=== PATIENT | female | born 1955 | race Caucasian/White ===

== ENCOUNTER → 2017-08-09 15:36 | Outpatient (CLI) | payer BC, SELFPAY ==
--- NOTE | 2017-08-09 15:39 | MM_ITS ---
MM Dig screening mamm BI w/CAD CAD Screening COMPARISON: Digital mammograms 08/07/2016 and 07/30/2015 INDICATION: There is no personal or family history of breast cancer TECHNIQUE: Standard CC and MLO images were obtained. R2 CAD reviewed. FINDINGS: The breasts are composed primarily of fat with mild diffuse scattered fibroglandular densities throughout each breast. There is a stable tiny density left breast with eccentric calcification. There is no suspicious lesion and there are no suspicious microcalcifications. IMPRESSION: Fatty type breast parenchyma with no suspicious lesion seen BI-RADS Category: 2 Benign Finding(s) RECOMMENDED FOLLOW-UP: 1YR - 1 YEAR FOLLOW-UP (A letter has been sent to the patient regarding results of the study.)
== END ==
PROVIDERS: Family Provider Family Medicine; PCP Family Medicine; Visit Provider Obstetrics & Gynecology
DX: Z12.31 Encounter for screening mammogram for malignant neoplasm of breast (principal)
CPT/HCPCS: 77067

== ENCOUNTER → 2017-08-15 14:09 | Outpatient (CLI) | payer BC, SELFPAY ==
--- NOTE | 2017-08-15 14:15 | MR_ITS ---
MR ankle RT wo con CLINICAL INDICATION: ITS.REASON: ACUTE RIGHT ANKLE PAIN ORDERING PHYSICIAN: Lyndon Patrick MD PATIENT AGE: 61 years TECHNIQUE: Multiplanar multiecho sequences are performed without contrast. COMPARISON: None FINDINGS: No fracture or dislocation. No bony destructive process. No ligamentous or tendinous injuries evident. No effusions or significant degenerative change. IMPRESSION: Negative MRI of the right ankle
== END ==
PROVIDERS: Family Provider Family Medicine; PCP Family Medicine; Visit Provider Family Medicine
DX: M25.571 Pain in right ankle and joints of right foot (principal)
CPT/HCPCS: 73721

== ENCOUNTER → 2017-08-16 15:47 | Outpatient (CLI) | payer BC, SELFPAY ==
--- NOTE | 2017-08-16 15:49 | MR_ITS ---
MR foot RT wo con CLINICAL INDICATION: ITS.REASON: ACUTE RIGHT ANKLE PAIN ORDERING PHYSICIAN: Lyndon Patrick MD PATIENT AGE: 61 years TECHNIQUE: Routine multiplanar multiecho sequences are performed without contrast. COMPARISON: None FINDINGS: Fracture or dislocation. No bony destructive process. No significant joint effusion. No obvious ligamentous or tendinous abnormality. There are mild osteoarthritic changes of the first metatarsophalangeal joint. No soft tissue masses. 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
== END ==
PROVIDERS: Family Provider Family Medicine; PCP Family Medicine; Visit Provider Family Medicine
DX: M25.571 Pain in right ankle and joints of right foot (principal)
CPT/HCPCS: 73718

== ENCOUNTER → 2018-09-09 10:03 | Outpatient (CLI) | payer BC, SELFPAY ==
--- NOTE | 2018-09-09 10:05 | MM_ITS ---
MM Dig screening mamm BI w/CAD CAD Screening COMPARISON: Digital mammograms with CAD 08/07/2016 and 08/09/2017 INDICATION: There is no personal or family history of breast cancer TECHNIQUE: Standard CC and MLO images were obtained. R2 CAD reviewed. FINDINGS: The breasts are composed primarily of fat with minimal scattered fibroglandular densities throughout each breast. There is a stable benign-appearing density with benign-appearing calcifications upper inner quadrant right breast. There is no suspicious lesion and there are no suspicious microcalcifications. IMPRESSION: Fibrofatty parenchyma no suspicious lesion seen BI-RADS Category: 2 Benign Finding(s) RECOMMENDED FOLLOW-UP: 1YR - 1 YEAR FOLLOW-UP (A letter has been sent to the patient regarding results of the study.)
== END ==
PROVIDERS: PCP Family Medicine; Visit Provider Obstetrics & Gynecology
DX: Z12.31 Encounter for screening mammogram for malignant neoplasm of breast (principal)
CPT/HCPCS: 77067

== ENCOUNTER → 2018-09-12 10:06 | Outpatient (CLI) | payer BC, SELFPAY ==
--- NOTE | 2018-09-12 10:10 | XR_ITS ---
DEXA SCAN.-BONE DENSITY STUDY . LUMBAR SPINE, right hip, and wrist HISTORY: Postmenopausal female. Treatments:. Estrogen replacement therapy. Synthroid. Low calcium intake. Previous fracture. Hypothyroidism. TECHNIQUE: DEXA scan hip and lumbar spine The most complete data summary and color graphic presentation of the today's ( and any prior ) DEXA findings are available in PACS. Definition and treatment guidelines included. COMPARISON: August 2015, June 2011 LUMBAR SPINE: Above normal bone density L1 vertebral body demonstrates the lowest T score 3.0 with BMD1.492 g/cm sq Overall mean lumbar L1-L4 T score 4.4 with BMD1.708 g/cm sq . August 2015 prior DEXA -the mean T score 2 with BMD was1.687g/cm sq Thus when comparing today's study to the prior exam there's been a 1.4% increase increasing mean bone density at the lumbar spine. RIGHT HIP above normal bone density Femoral neck density is best predictor of hip fracture risk . Right femoral T score = 1.7 with BMD1.268 g/cm sq . Average all regions at right hip yields today's right Hip Mean T score = 3.3 with BMD1.427 g/cm sq . On 2015 right hip T score = 2.9 with mean BMD1.37 g/cm sq Thus this reflects a 4.2% increasein overall mean bone density at right hip been interval. ====== RIGHT WRIST Above normal bone density distal one third of the radius BMD 1.042 with T score 1.7 radius total BMD 0.9 with T score 3.6. IMPRESSION Above normal bone density is seen at all areas sampled lumbar spine, right hip, right wrist. It . WHO criteria for post-menopausal, Women: Normal: T-score at or above -1 SD Osteopenia: T-score between -1 and -2.5 SD Osteoporosis: T-score at or below -2.5 SD
== END ==
PROVIDERS: PCP Family Medicine; Visit Provider Emergency Medicine
DX: Z13.820 Encounter for screening for osteoporosis (principal)
CPT/HCPCS: 77080

== ENCOUNTER → 2019-10-09 09:06 | Outpatient (CLI) | payer BC, SELFPAY ==
--- NOTE | 2019-10-09 09:06 | MM_ITS ---
PROCEDURE: MM DIG SCREENING MAMM BI W/CAD Digital Breast Tomosynthesis Included CLINICAL INDICATION: Routine Screening Mammogram There is no personal or family history of breast cancer. The patient is currently on estrogen. COMPARISON: [facility] DIG MAMM-SCREEN DYLAN W/CAD from 08/07/2016 [facility] MM Dig screening mamm BI w/CAD from 08/09/2017 [facility] MM Dig screening mamm BI w/CAD from 09/09/2018 TECHNIQUE: Standard CC and MLO images and 3D Tomosynthesis was obtained. R2 CAD reviewed. FINDINGS: The breasts are composed primarily of fat with scattered fibroglandular densities seen throughout both breasts. There is a benign-appearing microcalcification left breast. There is a possible developing asymmetric density with irregular borders outer quadrant left breast at approximately the 3 o'clock position which is confirmed with carol images. Recommend the patient return for spot compression views and ultrasound for additional evaluation. IMPRESSION: Fatty type breast parenchyma with possible developing new asymmetric lesion left breast BI-RAD Category: 0 Need Additional Imaging Evaluation FOLLOW-UP: IMM Immediate Follow-up Recommended (A letter has been sent to the patient regarding results of the study.) Dictated by: Dr. Saul Cooper MD 10/09/2019 13:[address] Saul Cooper MD in [place] 10/09/2019 13:32
== END ==
PROVIDERS: PCP Family Medicine; Visit Provider Obstetrics & Gynecology
DX: Z12.31 Encounter for screening mammogram for malignant neoplasm of breast (principal)
CPT/HCPCS: 77063; 77067

== ENCOUNTER → 2019-10-24 12:34 | Outpatient (CLI) | payer BC, SELFPAY ==
--- NOTE | 2019-10-24 12:34 | MM_ITS ---
This report is currently processing and HAS NOT BEEN OFFICIALLY SIGNED BY THE PHYSICIAN - ESTIMATED TIME OF APPROVAL IS 10/30/2019 10:56. PROCEDURE: MM DIG MAMM DX UNILAT LT CAD Digital Breast Tomosynthesis Included CLINICAL INDICATION: abnormal mammogram COMPARISON: MM DIG SCREENING MAMM BI W/CAD from 10/09/2019 TECHNIQUE: Standard CC and MLO images and 3D Tomosynthesis was obtained. R2 CAD reviewed. FINDINGS: The additional spot compression views and 90 degree lateral view somewhat lessen concern for a possible asymmetric lesion. Ultrasound examination performed the same date showed no abnormality. This most likely represents simply a small area of asymmetric glandular tissue. IMPRESSION: Essentially negative problem solving views and recommend the patient continue with yearly screening mammography BI-RAD Category: 1 Negative FOLLOW-UP: 1YR 1 Year Follow-up (A letter has been sent to the patient regarding results of the study.) Dictated by: Dr. Saul Cooper MD 10/24/2019 15:[address] Saul Cooper MD in [place] 10/30/2019 10:53
--- NOTE | 2019-10-24 12:34 | US_ITS ---
PROCEDURE: US BREAST LT COMPLETE CLINICAL INDICATION: spot compression of possible asymmetric lesion COMPARISON: Screening mammogram 10/09/2019 FINDINGS: Rather homogeneous diffuse echogenicity is seen consistent with this lady's primarily fatty type breast parenchyma. There is no suspicious cystic or solid lesion identified. There is a normal appearing node in the axilla. IMPRESSION: Negative targeted ultrasound left breast Dictated by: Dr. Saul Cooper MD 10/24/2019 15:[address] Saul Copoer MD in [place] 10/24/2019 15:02
== END ==
PROVIDERS: PCP Family Medicine; Visit Provider Obstetrics & Gynecology
DX: R92.8 Other abnormal and inconclusive findings on diagnostic imaging of breast (principal)
CPT/HCPCS: 76641; 77061; 77065; G0279

== ENCOUNTER → 2020-01-14 12:42 | Outpatient (CLI) | payer MEDICARE, BC, SELFPAY ==
[2020-01-14 13:29] LABS: Free T4 (Free Thyroxine) 1.93 ng/dl (0.78-2.19)
[2020-01-14 13:43] LABS: Thyroid Stimulating Hormone 0.17 uIU/mL (0.465-4.68)
[2020-01-15 08:57] LABS: Vitamin B12 1720 pg/mL (232-1245)
== END ==
PROVIDERS: Visit Provider Physician Assistant
DX: E03.9 Hypothyroidism, unspecified (principal); E53.8 Deficiency of other specified B group vitamins
CPT/HCPCS: 36415; 82607; 84439; 84443

== ENCOUNTER → 2020-03-03 10:51 | Outpatient (CLI) | payer MEDICARE, BC, SELFPAY ==
[2020-03-03 14:18] LABS: Free T4 (Free Thyroxine) 1.57 ng/dl (0.78-2.19)
[2020-03-03 14:32] LABS: Thyroid Stimulating Hormone 1.14 uIU/mL (0.465-4.68)
[2020-03-03 14:52] LABS: Vitamin B12 > 1000 pg/mL (239-931)
== END ==
PROVIDERS: Visit Provider Nurse Practitioner Family
DX: E03.9 Hypothyroidism, unspecified (principal); E53.8 Deficiency of other specified B group vitamins
CPT/HCPCS: 36415; 82607; 84439; 84443

== ENCOUNTER → 2020-10-26 08:43 | Outpatient (CLI) | payer MEDICARE, BC, SELFPAY ==
--- NOTE | 2020-10-26 08:43 | MM_ITS ---
PROCEDURE INFORMATION: Exam: MG Screening 3D Mammography Exam date and time: 10/26/2020 8:43 AM Age: 64 years old Clinical indication: screening mammogram TECHNIQUE: Imaging protocol: Screening tomosynthesis and 2D mammography including computer-aided detection (CAD) when performed. COMPARISON: 1. MG MM DIG MAMM DX UNILAT LT CAD 10/24/2019 1:10 PM 2. MG MM DIG SCREENING MAMM BI W/CAD 10/09/2019 9:22 AM 3. MG [facility] MM Dig screening mamm BI w/CAD 09/09/2018 11:14 AM 4. MG [facility] MM Dig screening mamm BI w/CAD 08/09/2017 3:52 PM FINDINGS: MAMMOGRAPHY: Breast composition: There are scattered areas of fibroglandular density. Mass: Mass within the outer posterior left breast approximating 3 o'clock about 16 cm from the nipple should be further assessed with spot views in CC/MLO projection to confirm and further characterize. Ultrasound should also be performed. Architectural distortion: No new or suspicious architectural distortion. Calcifications: No new or suspicious calcifications are present Asymmetric density: No new or suspicious asymmetric density is present Skin thickening: None. Axillary adenopathy: None. IMPRESSION: Mass within the outer posterior left breast approximating 3 o'clock 16 cm from the nipple measuring 10 mm should be further assessed with spot views in CC/MLO projection to confirm and further characterize. Ultrasound should also be performed. ASSESSMENT: BI-RADS category 0: Incomplete-need additional imaging evaluation
== END ==
PROVIDERS: PCP Psychiatry & Neurology Sleep Medicine; Visit Provider Obstetrics & Gynecology
DX: Z12.31 Encounter for screening mammogram for malignant neoplasm of breast (principal)
CPT/HCPCS: 77063; 77067

== ENCOUNTER → 2020-11-05 13:45 | Outpatient (CLI) | payer MEDICARE, BC, SELFPAY ==
--- NOTE | 2020-11-05 13:45 | US_ITS ---
PROCEDURE: US BREAST LT COMPLETE CLINICAL INDICATION: abnormal mamm COMPARISON: US US BREAST LT COMPLETE from 10/24/2019 FINDINGS: Targeted ultrasound shows a small homogeneous echogenic lesion 2 o'clock position outer breast measuring 0.6 by 0.7 x 0.3 cm and this probably is a small Nascimento. However at the 2 o'clock position outer breast there is a suspicious hypoechoic lesion taller than wide with ill-defined borders and this must be considered suspicious for carcinoma. IMPRESSION: Suspicious lesion on both ultrasound and problem solving mammogram views and biopsy is recommended BI-RADS category 4 Dictated by: Dr. Saul Cooper MD 11/05/2020 15:22 Dr. Saul Cooper MD in [place] 11/05/2020 15:22
--- NOTE | 2020-11-05 14:21 | MM_ITS ---
PROCEDURE: MM DIG MAMM DX UNILAT LT CAD Digital Breast Tomosynthesis Included CLINICAL INDICATION: ABN MAMM COMPARISON: MG MM DIG SCREENING MAMM BI W/CAD from 10/26/2020 US US BREAST LT COMPLETE from 11/05/2020 TECHNIQUE: Standard CC and MLO images and 3D Tomosynthesis was obtained. R2 CAD reviewed. FINDINGS: Spot-compression MLO and CC views were obtained along with a 90 degree lateral view. The asymmetric density central portion persists on the spot views and shows somewhat ill-defined borders and subtle suggestion of spiculation. Targeted ultrasound performed the same date shows a hypoechoic lesion taller than wide with ill-defined borders and recommend the patient be scheduled for biopsy which could be performed with ultrasound guidance. IMPRESSION: Suspicious asymmetric lesion on problem solving views with positive ultrasound findings as described above BI-RAD Category: 4 Suspicious Abnormality - Biopsy Considered FOLLOW-UP: BIO Biopsy Recommended (A letter has been sent to the patient regarding results of the study.) Dictated by: Dr. Saul Cooper MD 11/05/2020 15:20 Dr. Saul Cooper MD in [place] 11/05/2020 15:20
== END ==
PROVIDERS: PCP Family Medicine; Visit Provider Obstetrics & Gynecology
DX: R92.8 Other abnormal and inconclusive findings on diagnostic imaging of breast (principal)
CPT/HCPCS: 76641; 77061; 77065; G0279

== ENCOUNTER → 2020-11-18 09:30 | Outpatient (CLI) | payer MEDICARE, BC, SELFPAY ==
--- NOTE | 2020-11-18 09:38 | US_ITS ---
PROCEDURE: US MAMMOTOME BX LT CLINICAL INDICATION: ABN MAMM OF LT BREAST Left breast nodule COMPARISON: MG MM DIG SCREENING MAMM BI W/CAD from 10/26/2020 US US BREAST LT COMPLETE from 11/05/2020 MG MM CLIP PLACEMENT LT from 11/18/2020 FINDINGS: Following obtaining informed consent and time-out procedure under aseptic conditions and local anesthesia with 1 percent buffered lidocaine, mammotome needle was inserted into the area of interest within the suspicious nodule at 3 o'clock with ultrasound guidance. Multiple mammotome biopsies were obtained and a non ferromagnetic clip was then placed. Patient tolerated the procedure well without evidence of immediate complications. Post biopsy mammogram demonstrates the clip and post biopsy changes present within the 3 o'clock region of the left breast in the area of mammographic interest. Pathology: Invasive moderately differentiated ductal adenocarcinoma. IMPRESSION: Successful and uneventful ultrasound-guided mammotome biopsy of the left breast demonstrated invasive moderately differentiated ductal adenocarcinoma. Surgical and oncology consult suggested. Dictated by: Toby Fischer MD 11/30/2020 09:34 Toby Fischer MD in [place] 11/30/2020 09:34
--- NOTE | 2020-11-18 11:15 | MM_ITS ---
PROCEDURE: MM CLIP PLACEMENT LT Digital Breast Tomosynthesis Included CLINICAL INDICATION: S/P BX follow-up biopsy COMPARISON: MG MM DIG MAMM DX UNILAT LT CAD from 10/24/2019 MG MM DIG SCREENING MAMM BI W/CAD from 10/26/2020 MG MM DIG MAMM DX UNILAT LT CAD from 11/05/2020 US US MAMMOTOME BX LT from 11/18/2020 TECHNIQUE: Standard CC and MLO images and 3D Tomosynthesis was obtained. R2 CAD reviewed. FINDINGS: Post biopsy and clip placement images are obtained demonstrating the and moderately placed clip in the outer aspect of the left breast corresponding to the previously noted area of asymmetry on the mammogram. Post biopsy changes are present in this region as well. Pathology is pending. IMPRESSION: Status post mammotome biopsy of the left breast but post biopsy findings and biopsy clip in satisfactory position in the area of mammographic and sonographic concern. Pathology pending Dictated by: Toby Fischer MD 11/19/2020 14:22 Toby Fischer MD in [place] 11/19/2020 14:22
== END ==
PROVIDERS: PCP Physician Assistant; Visit Provider Obstetrics & Gynecology
DX: R92.8 Other abnormal and inconclusive findings on diagnostic imaging of breast (principal); N63.20 Unspecified lump in the left breast, unspecified quadrant
CPT/HCPCS: 19083; 77065; 88305; 88360; C2618

== ENCOUNTER → 2020-12-13 10:41 | Outpatient (CLI) | payer MEDICARE, BC, SELFPAY | DX: Z01.812 Encounter for preprocedural laboratory examination (principal); Z11.52 Encounter for screening for COVID-19; C50.411 Malignant neoplasm of upper-outer quadrant of right female breast; Z17.1 Estrogen receptor negative status [ER-] | CPT/HCPCS: U0003 ==

== ENCOUNTER → 2021-02-05 09:07 | Outpatient (CLI) | payer MEDICARE, BC, SELFPAY ==
[2021-02-05 11:15] LABS: Basophils % 0.5 % (0.1-2.0); Eosinophils # 0.3 K/mm3 (0.0-0.4); Eosinophils % 5.6 % (0.1-12.0); Hematocrit 44.8 % (37.0-47.0); Hemoglobin 14.8 g/dL (12.2-16.2); Lymphocytes % 33.3 % (10-50); Mean Corpuscular HGB Conc 32.9 g/dL (31.8-35.4); Mean Corpuscular Volume 97.1 fl (81-99); Mean Platelet Volume 8.5 fl (7.4-10.4); Monocytes # 0.1 K/mm3 (0.1-1.0); Monocytes % 1.1 % (1.7-9.3); Neutrophils # 3.5 K/mm3 (1.8-7.8); Neutrophils % 59.5 % (37.0-80.0); Platelet Count 300 K/mm3 (142-424); Red Blood Count 4.62 M/mm3 (4.20-5.40); Red Cell Distribution Width 13.6 % (11.5-17.5); White Blood Count 5.9 K/mm3 (4.8-10.8)
[2021-02-05 11:59] LABS: Chloride 104 mmol/L (98-107); Potassium 4.5 mmoL/L (3.5-5.1); Sodium 140 mmol/L (136-145)
[2021-02-05 12:02] LABS: Alanine Aminotransferase 47 U/L (12-78); Albumin Level 3.5 g/dl (3.5-5.0); Albumin/Globulin Ratio 1.4 (1.1-1.8); Alkaline Phosphatase 84 U/L (38-126); Anion Gap 12.5 mEq/L (5-15); Aspartate Amino Transferase 48 U/L (14-36); Bilirubin,Total 0.9 mg/dl (0.2-1.3); Blood Urea Nitrogen 15 mg/dl (7-17); Carbon Dioxide 28 mmol/L (22.0-30.0); Estimated Glomerular Filt Rate 84 ml/min (>60); GFR (African American) 101 ML/MIN (>60); Globulin 2.5 g/dL (1.3-3.2)
[2021-02-05 12:03] LABS: Calcium 8.8 mg/dl (8.4-10.2); Glucose 91 mg/dl (74-100)
== END ==
PROVIDERS: Visit Provider Internal Medicine
DX: C50.412 Malignant neoplasm of upper-outer quadrant of left female breast (principal); Z17.1 Estrogen receptor negative status [ER-]
CPT/HCPCS: 36415; 80053; 85025

== ENCOUNTER → 2021-02-14 09:00 | Outpatient (CLI) | payer MEDICARE, BC, SELFPAY ==
[2021-02-14 09:27] LABS: Alanine Aminotransferase 27 U/L (12-78); Albumin Level 3.5 g/dl (3.5-5.0); Albumin/Globulin Ratio 1.3 (1.1-1.8); Alkaline Phosphatase 60 U/L (38-126); Anion Gap 11.1 mEq/L (5-15); Aspartate Amino Transferase 29 U/L (14-36); Bilirubin,Total 0.6 mg/dl (0.2-1.3); Blood Urea Nitrogen 16 mg/dl (7-17); Calcium 8.7 mg/dl (8.4-10.2); Carbon Dioxide 28 mmol/L (22.0-30.0); Chloride 104 mmol/L (98-107); Estimated Glomerular Filt Rate 84 ml/min (>60); GFR (African American) 101 ML/MIN (>60); Globulin 2.7 g/dL (1.3-3.2); Glucose 111 mg/dl (74-100); Potassium 4.1 mmoL/L (3.5-5.1); Sodium 139 mmol/L (136-145); Total Protein,Serum 6.2 g/dl (6.3-8.2)
[2021-02-14 10:07] LABS: Basophils % 0.9 % (0.1-2.0); Eosinophils # 0.2 K/mm3 (0.0-0.4); Eosinophils % 3.6 % (0.1-12.0); Hematocrit 40.5 % (37.0-47.0); Hemoglobin 13.3 g/dL (12.2-16.2); Lymphocytes # 2.1 K/mm3 (0.7-4.5); Lymphocytes % 51.9 % (10-50); Mean Corpuscular HGB Conc 32.9 g/dL (31.8-35.4); Mean Corpuscular Hemoglobin 32.3 pg (27.0-31.2); Mean Corpuscular Volume 98.2 fl (81-99); Monocytes # 0.1 K/mm3 (0.1-1.0); Monocytes % 3.5 % (1.7-9.3); Neutrophils # 1.6 K/mm3 (1.8-7.8); Neutrophils % 40.2 % (37.0-80.0); Platelet Count 278 K/mm3 (142-424); Red Blood Count 4.12 M/mm3 (4.20-5.40); Red Cell Distribution Width 13.9 % (11.5-17.5); White Blood Count 4.1 K/mm3 (4.8-10.8)
[2021-02-14 10:20] LABS: MANUAL DIFFERENTIAL MANUAL DIFFERENTIAL (MANUAL DIFF)
[2021-02-14 11:01] LABS: Lymphocytes % 62 % (10-50); Monocytes % 3 % (2-9); Neutrophils % 35 % (42-76); Total Cells Counted 100
[2021-02-14 11:02] LABS: Anisocytosis 1+; Hypochromasia 2+; Microcytosis 1+; Platelet Estimate Normal
== END ==
PROVIDERS: Visit Provider Internal Medicine
DX: C50.412 Malignant neoplasm of upper-outer quadrant of left female breast (principal); Z17.1 Estrogen receptor negative status [ER-]
CPT/HCPCS: 36415; 80053; 85007; 85025

== ENCOUNTER → 2021-02-19 08:47 | Outpatient (CLI) | payer MEDICARE, BC, SELFPAY ==
[2021-02-19 09:36] LABS: Basophils % 0.1 % (0.1-2.0); Eosinophils % 0.2 % (0.1-12.0); Hematocrit 43.1 % (37.0-47.0); Lymphocytes # 1.4 K/mm3 (0.7-4.5); Lymphocytes % 27.6 % (10-50); Mean Corpuscular HGB Conc 32.4 g/dL (31.8-35.4); Mean Corpuscular Volume 98.6 fl (81-99); Mean Platelet Volume 7.6 fl (7.4-10.4); Monocytes # 0.2 K/mm3 (0.1-1.0); Monocytes % 3.2 % (1.7-9.3); Neutrophils # 3.4 K/mm3 (1.8-7.8); Platelet Count 295 K/mm3 (142-424); Red Blood Count 4.37 M/mm3 (4.20-5.40); Red Cell Distribution Width 13.5 % (11.5-17.5)
[2021-02-19 10:20] LABS: Chloride 107 mmol/L (98-107); Sodium 140 mmol/L (136-145)
[2021-02-19 10:21] LABS: Potassium 4.7 mmoL/L (3.5-5.1)
[2021-02-19 10:23] LABS: Alanine Aminotransferase 94 U/L (12-78); Alkaline Phosphatase 81 U/L (38-126); Anion Gap 11.7 mEq/L (5-15); Aspartate Amino Transferase 85 U/L (14-36); Bilirubin,Total 0.6 mg/dl (0.2-1.3); Blood Urea Nitrogen 17 mg/dl (7-17); Carbon Dioxide 26 mmol/L (22.0-30.0); Estimated Glomerular Filt Rate 100 ml/min (>60); GFR (African American) 121 ML/MIN (>60)
[2021-02-19 10:24] LABS: Albumin Level 3.5 g/dl (3.5-5.0); Albumin/Globulin Ratio 1.4 (1.1-1.8); Calcium 9.2 mg/dl (8.4-10.2); Globulin 2.5 g/dL (1.3-3.2); Glucose 105 mg/dl (74-100)
== END ==
PROVIDERS: Visit Provider Internal Medicine
DX: C50.412 Malignant neoplasm of upper-outer quadrant of left female breast (principal); Z17.1 Estrogen receptor negative status [ER-]
CPT/HCPCS: 36415; 80053; 85025

== ENCOUNTER → 2021-02-26 08:01 | Outpatient (CLI) | payer MEDICARE, BC, SELFPAY ==
[2021-02-26 08:14] LABS: Basophils % 0.5 % (0.1-2.0); Eosinophils % 0.8 % (0.1-12.0); Hematocrit 42.2 % (37.0-47.0); Hemoglobin 13.6 g/dL (12.2-16.2); Lymphocytes # 1.4 K/mm3 (0.7-4.5); Lymphocytes % 37.8 % (10-50); Mean Corpuscular HGB Conc 32.3 g/dL (31.8-35.4); Mean Corpuscular Hemoglobin 32.3 pg (27.0-31.2); Mean Corpuscular Volume 100.2 fl (81-99); Mean Platelet Volume 7.4 fl (7.4-10.4); Monocytes # 0.1 K/mm3 (0.1-1.0); Monocytes % 1.3 % (1.7-9.3); Neutrophils # 2.2 K/mm3 (1.8-7.8); Neutrophils % 59.6 % (37.0-80.0); Platelet Count 270 K/mm3 (142-424); Red Blood Count 4.21 M/mm3 (4.20-5.40); Red Cell Distribution Width 13.9 % (11.5-17.5); White Blood Count 3.6 K/mm3 (4.8-10.8)
[2021-02-26 09:55] LABS: Chloride 106 mmol/L (98-107); Potassium 4.4 mmoL/L (3.5-5.1); Sodium 139 mmol/L (136-145)
[2021-02-26 09:58] LABS: Alanine Aminotransferase 106 U/L (12-78); Albumin Level 3.2 g/dl (3.5-5.0); Albumin/Globulin Ratio 1.5 (1.1-1.8); Alkaline Phosphatase 110 U/L (38-126); Anion Gap 9.4 mEq/L (5-15); Aspartate Amino Transferase 30 U/L (14-36); Bilirubin,Total 0.5 mg/dl (0.2-1.3); Blood Urea Nitrogen 16 mg/dl (7-17); Carbon Dioxide 28 mmol/L (22.0-30.0); Estimated Glomerular Filt Rate 100 ml/min (>60); GFR (African American) 121 ML/MIN (>60); Globulin 2.2 g/dL (1.3-3.2); Total Protein,Serum 5.4 g/dl (6.3-8.2)
[2021-02-26 09:59] LABS: Calcium 8.6 mg/dl (8.4-10.2); Glucose 112 mg/dl (74-100)
== END ==
PROVIDERS: Visit Provider Internal Medicine
DX: C50.412 Malignant neoplasm of upper-outer quadrant of left female breast (principal); Z17.1 Estrogen receptor negative status [ER-]
CPT/HCPCS: 36415; 80053; 85025

== ENCOUNTER → 2021-03-05 08:42 | Outpatient (CLI) | payer MEDICARE, BC, SELFPAY ==
[2021-03-05 09:03] LABS: Basophils % 0.6 % (0.1-2.0); Eosinophils % 0.3 % (0.1-12.0); Hematocrit 43.4 % (37.0-47.0); Hemoglobin 14.2 g/dL (12.2-16.2); Lymphocytes # 1.5 K/mm3 (0.7-4.5); Lymphocytes % 50.3 % (10-50); Mean Corpuscular HGB Conc 32.7 g/dL (31.8-35.4); Mean Corpuscular Hemoglobin 32.2 pg (27.0-31.2); Mean Corpuscular Volume 98.5 fl (81-99); Monocytes # 0.1 K/mm3 (0.1-1.0); Monocytes % 3.8 % (1.7-9.3); Neutrophils # 1.4 K/mm3 (1.8-7.8); Neutrophils % 44.9 % (37.0-80.0); Platelet Count 358 K/mm3 (142-424); Red Cell Distribution Width 14.7 % (11.5-17.5)
[2021-03-05 09:06] LABS: MANUAL DIFFERENTIAL MANUAL DIFFERENTIAL (MANUAL DIFF)
[2021-03-05 09:22] LABS: Chloride 105 mmol/L (98-107); Potassium 4.5 mmoL/L (3.5-5.1); Sodium 137 mmol/L (136-145)
[2021-03-05 09:24] LABS: Blood Urea Nitrogen 16 mg/dl (7-17); Estimated Glomerular Filt Rate 100 ml/min (>60); GFR (African American) 121 ML/MIN (>60)
[2021-03-05 09:25] LABS: Alanine Aminotransferase 29 U/L (12-78); Albumin Level 3.4 g/dl (3.5-5.0); Albumin/Globulin Ratio 1.5 (1.1-1.8); Alkaline Phosphatase 77 U/L (38-126); Anion Gap 8.5 mEq/L (5-15); Aspartate Amino Transferase 20 U/L (14-36); Bilirubin,Total 0.4 mg/dl (0.2-1.3); Carbon Dioxide 28 mmol/L (22.0-30.0); Globulin 2.3 g/dL (1.3-3.2); Total Protein,Serum 5.7 g/dl (6.3-8.2)
[2021-03-05 09:26] LABS: Calcium 8.8 mg/dl (8.4-10.2); Glucose 99 mg/dl (74-100)
[2021-03-05 09:56] LABS: Lymphocytes % 43 % (10-50); Monocytes % 3 % (2-9); Neutrophils % 54 % (42-76); Nucleated Red Blood Cells 2; Total Cells Counted 100
[2021-03-05 09:57] LABS: Platelet Estimate Normal; RBC Morphology Normal
== END ==
PROVIDERS: Visit Provider Internal Medicine
DX: C50.412 Malignant neoplasm of upper-outer quadrant of left female breast (principal); Z17.1 Estrogen receptor negative status [ER-]
CPT/HCPCS: 36415; 80053; 85007; 85025

== ENCOUNTER → 2021-03-12 08:34 | Outpatient (CLI) | payer MEDICARE, BC, SELFPAY ==
[2021-03-12 09:08] LABS: Basophils % 0.7 % (0.1-2.0); Eosinophils % 0.3 % (0.1-12.0); Hematocrit 42.7 % (37.0-47.0); Hemoglobin 14.1 g/dL (12.2-16.2); Lymphocytes # 2.3 K/mm3 (0.7-4.5); Lymphocytes % 37.7 % (10-50); Mean Corpuscular Hemoglobin 32.1 pg (27.0-31.2); Mean Corpuscular Volume 97.4 fl (81-99); Mean Platelet Volume 9.2 fl (7.4-10.4); Monocytes # 0.2 K/mm3 (0.1-1.0); Monocytes % 3.1 % (1.7-9.3); Neutrophils # 3.6 K/mm3 (1.8-7.8); Neutrophils % 58.2 % (37.0-80.0); Platelet Count 341 K/mm3 (142-424); Red Blood Count 4.39 M/mm3 (4.20-5.40); Red Cell Distribution Width 14.6 % (11.5-17.5); White Blood Count 6.1 K/mm3 (4.8-10.8)
[2021-03-12 09:16] LABS: Chloride 105 mmol/L (98-107)
[2021-03-12 09:17] LABS: Potassium 4.3 mmoL/L (3.5-5.1); Sodium 138 mmol/L (136-145)
[2021-03-12 09:20] LABS: Alanine Aminotransferase 22 U/L (12-78); Albumin Level 3.4 g/dl (3.5-5.0); Albumin/Globulin Ratio 1.4 (1.1-1.8); Alkaline Phosphatase 69 U/L (38-126); Anion Gap 11.3 mEq/L (5-15); Aspartate Amino Transferase 25 U/L (14-36); Bilirubin,Total 0.7 mg/dl (0.2-1.3); Blood Urea Nitrogen 20 mg/dl (7-17); Calcium 8.6 mg/dl (8.4-10.2); Carbon Dioxide 26 mmol/L (22.0-30.0); Estimated Glomerular Filt Rate 100 ml/min (>60); GFR (African American) 121 ML/MIN (>60); Globulin 2.4 g/dL (1.3-3.2); Glucose 98 mg/dl (74-100); Total Protein,Serum 5.8 g/dl (6.3-8.2)
== END ==
PROVIDERS: Visit Provider Internal Medicine
DX: C50.412 Malignant neoplasm of upper-outer quadrant of left female breast (principal); Z17.1 Estrogen receptor negative status [ER-]
CPT/HCPCS: 36415; 80053; 85025

== ENCOUNTER 2021-03-20 06:13 | Emergency (ER) | payer MEDICARE, BC, SELFPAY ==
[2021-03-20 06:15] VITALS: BP 143/73; PULSE 88; RESP 16; TEMP 37.4; O2SAT 99; BMI 40.6
[2021-03-20 06:44] LABS: Basophils % 1.1 % (0.1-2.0); Eosinophils % 0.5 % (0.1-12.0); Hematocrit 44.4 % (37.0-47.0); Hemoglobin 15.1 g/dL (12.2-16.2); Lymphocytes # 0.9 K/mm3 (0.7-4.5); Lymphocytes % 79.1 % (10-50); Mean Corpuscular HGB Conc 33.9 g/dL (31.8-35.4); Mean Corpuscular Hemoglobin 32.4 pg (27.0-31.2); Mean Corpuscular Volume 95.6 fl (81-99); Mean Platelet Volume 8.2 fl (7.4-10.4); Monocytes % 2.7 % (1.7-9.3); Neutrophils # 0.2 K/mm3 (1.8-7.8); Neutrophils % 16.6 % (37.0-80.0); Platelet Count 256 K/mm3 (142-424); Red Blood Count 4.65 M/mm3 (4.20-5.40); Red Cell Distribution Width 14.8 % (11.5-17.5); White Blood Count 1.1 K/mm3 (4.8-10.8)
--- NOTE | 2021-03-20 06:48 | [facility].EDGENADL ---
ED Disposition Clinical Impression: Drug dermatitis, Mucositis (ulcerative) due to antineoplastic therapy Adverse effect of chemotherapy Qualifiers: Encounter type: initial encounter Qualified Code(s): T45.1X5A - Adverse effect of antineoplastic and immunosuppressive drugs, initial encounter Disposition: Home, Self-Care Condition on Discharge: Fair Instructions: Coping With the Side Effects of Chemotherapy, Coping With Skin and Nail Problems Related to Chemotherapy, DI for Chemotherapy -- Adult, DI for Rash Additional Instructions: You have been evaluated for dermatitis and mucositis related to chemotherapy agents. Take Benadryl and cetirizine as needed for itching. Take Zofran for nausea. Use Magic mouthwash. Follow-up with your oncology team. Return to the emergency department for any new or worsening symptoms. Prescriptions: Magic Mouthwash [Magic Mouthwash;240mL [place]] 5 ml * BID PRN #240 ml PRN Reason: Inflammation Transmission Status: Received by ChangersJULY COLÓN 420 ondansetron HCL [Ondansetron 4mg tab*] 4 mg PO Q6 PRN #12 tab PRN Reason: Nausea Transmission Status: Received by ChangersOGER ELDON 420 Referrals: Lyndon Patrick MD [Primary Care Provider] - Time of Disposition: 07:27 - Critical Care Critical Care Time: No Attestation: On 03/20/21, the high probability of a clinically significant, sudden or life threatening deterioration of the following system(s) required my full and direct attention, intervention and personal management. The time I documented below is in addition to time spent performing reported procedures but includes the following listed in this critical care notation. Medical Decision Making - Medical Records Medical records reviewed: Yes: I reviewed the patient's medical records. - Ronald Inquiry Pt receiving controlled substance: No Vital Signs: 03/20/21 06:15 03/20/21 07:15 03/20/21 07:54 Temperature 99.3 F 99.3 F Temperature Source Oral Oral Pulse Rate 85 85 Pulse Rate [Left] 88 Respiratory Rate 16 16 16 Blood Pressure 112/77 112/77 Blood Pressure [Right Arm] 143/73 H Blood Pressure Mean [Right Arm] 96 Blood Pressure Source [Right Arm] Automatic Cuff 02 Sat by Pulse Oximetry 99 95 Oxygen Delivery Method Room Air Room Air - Lab Data Lab Results 03/20/21 06:35: WBC 1.1 L*, RBC 4.65, Hgb 15.1, Hct 44.4, MCV 95.6, MCH 32.4 H, MCHC 33.9, RDW 14.8, Plt Count 256, MPV 8.2, Neut % (Auto) 16.6 L, Lymph % (Auto) 79.1 H, Jerome % (Auto) 2.7, Eos % (Auto) 0.5, Baso % (Auto) 1.1, Neut # (Auto) 0.2 L*, Lymph # (Auto) 0.9, Jerome # (Auto) 0.0 L, Eos # (Auto) 0.0, Baso # (Auto) 0.0, Total Counted 100, Neutrophils % (Manual) 20 L, Lymphocytes % (Manual) 75 H, Monocytes % (Manual) 3, Eosinophils % (Manual) 1, Blast Cells % 1.0, Platelet Estimate Normal, Macrocytosis 2+ 03/20/21 06:35: Sodium 133 L, Potassium 3.5, Chloride 101, Carbon Dioxide 27, Anion Gap 8.5, BUN 14, Creatinine 0.60, Estimated Creat Clear 100, Estimated GFR 100, Est GFR ( Amer) 121, Glucose 121 H, Calcium 8.5, Total Bilirubin 1.3, AST 31, ALT 27, Alkaline Phosphatase 67, Total Protein 5.6 L, Albumin 3.2 L, Globulin 2.4, Albumin/Globulin Ratio 1.3 Result diagrams: 03/20/21 06:35 03/20/21 06:35 Orders (Tests/Meds): ED MEDICATIONS Generic Name Dose Route Start Last Admin Trade Name Freq PRN Reason Stop Dose Admin Tetracycl/Hydrocort/Nystatin/Diphen 15 ml 03/20/21 09:00 Magic Mouthwash 240ml Bottle PO 04/19/21 08:59 QID IVAN Discontinued Medications Generic Name Dose Route Start Last Admin Trade Name Freq PRN Reason Stop Dose Admin Diphenhydramine HCl 25 mg 03/20/21 06:34 03/20/21 06:44 Diphenhydramine 50mg/Ml Vial IV 03/20/21 06:35 25 mg ONCE ONE Administration Diphenhydramine HCl 25 mg 03/20/21 08:00 03/20/21 08:02 Diphenhydramine 25mg Capsule PO 03/20/21 08:01 25 mg ONCE ONE Administration Sodium Chloride 1,000 mls @ 999 mls/hr 03/20/21
[2021-03-20 06:50] LABS: MANUAL DIFFERENTIAL MANUAL DIFFERENTIAL (MANUAL DIFF)
[2021-03-20 06:51] LABS: Chloride 101 mmol/L (98-107); Potassium 3.5 mmoL/L (3.5-5.1); Sodium 133 mmol/L (136-145)
[2021-03-20 06:53] LABS: Alanine Aminotransferase 27 U/L (12-78); Aspartate Amino Transferase 31 U/L (14-36); Blood Urea Nitrogen 14 mg/dl (7-17); Creatinine Clearance Estimated 100 mL/min (50-200); Estimated Glomerular Filt Rate 100 ml/min (>60); GFR (African American) 121 ML/MIN (>60)
[2021-03-20 06:54] LABS: Albumin Level 3.2 g/dl (3.5-5.0); Albumin/Globulin Ratio 1.3 (1.1-1.8); Alkaline Phosphatase 67 U/L (38-126); Anion Gap 8.5 mEq/L (5-15); Bilirubin,Total 1.3 mg/dl (0.2-1.3); Calcium 8.5 mg/dl (8.4-10.2); Carbon Dioxide 27 mmol/L (22.0-30.0); Globulin 2.4 g/dL (1.3-3.2); Glucose 121 mg/dl (74-100); Total Protein,Serum 5.6 g/dl (6.3-8.2)
[2021-03-20 07:14] LABS: Eosinophils % 1 % (0-3); Lymphocytes % 75 % (10-50); Macrocytosis 2+; Monocytes % 3 % (2-9); Neutrophils % 20 % (42-76); Platelet Estimate Normal; Total Cells Counted 100
[2021-03-20 07:15] VITALS: BP 112/77; PULSE 85; RESP 16; O2SAT 95
[2021-03-20 07:54] VITALS: BP 112/77; PULSE 85; RESP 16; TEMP 37.4; O2SAT 95
== END 2021-03-20 08:46 | disposition home or self-care (01) ==
PROVIDERS: Emergency Provider Emergency Medicine; PCP Family Medicine
DX: L27.0 Generalized skin eruption due to drugs and medicaments taken internally; T45.1X5A Adverse effect of antineoplastic and immunosuppressive drugs, initial encounter; J44.9 Chronic obstructive pulmonary disease, unspecified; E11.9 Type 2 diabetes mellitus without complications; I10 Essential (primary) hypertension; E03.9 Hypothyroidism, unspecified
CPT/HCPCS: 80053; 85007; 85025; 96365; 96375; 99282

== ENCOUNTER 2021-03-22 07:52 | Outpatient (CLI) | payer MEDICARE, BC, SELFPAY ==
--- NOTE | 2021-03-22 | CA_ITS ---
APPROVED REPORT Right Upper Extremity Venous Study for DVT. Vice President Digital Strategist: Luciana Berger RT(R) Indications Upper Extremity Pain: Right Upper Extremity Edema: Right Patient has breast cancer. She has a port in the right subclavian that was last used for chemotherapy 03/14/21. Her right arm is red, swollen, and very tender to the touch. Risk Factors Malignancy Vein Imaging IJV (R): Normal phasic flow is seen. Normal flow, augmentation and compression is seen. No evidence of Deep Vein Thrombosis. No abnormalities are demonstrated. Axillary (R): Normal phasic flow is seen. Normal flow, augmentation and compression is seen. No evidence of Deep Vein Thrombosis. No abnormalities are demonstrated. Brachial (R): Normal phasic flow is seen. Normal flow, augmentation and compression is seen. No evidence of Deep Vein Thrombosis. No abnormalities are demonstrated. Cephalic (R): Thrombus Radial (R): Compressible Ulnar (R): Compressible Findings Duplex evaluation of the right upper extremity demonstrates no evidence of DVT. SVT seen in the proximal cephalic vein of the RUE. Conclusion Duplex evaluation of the right upper extremity demonstrates no evidence of DVT. SVT seen in the proximal cephalic vein of the RUE. Electronically signed by : Toby iFscher MD 03/23/2021 18:25:50
[2021-03-22 08:30] VITALS: BP 140/71; PULSE 75; RESP 18; O2SAT 98
[2021-03-22 09:52] VITALS: BP 133/59; PULSE 78; RESP 18
== END 2021-03-22 09:52 | disposition home or self-care (01) ==
LOC: RT 07:54 → INF 08:41
PROVIDERS: PCP Family Medicine; Visit Provider Internal Medicine
DX: C50.412 Malignant neoplasm of upper-outer quadrant of left female breast (principal); M79.89 Other specified soft tissue disorders; Z17.1 Estrogen receptor negative status [ER-]
CPT/HCPCS: 93971; 96360; J1642

== ENCOUNTER 2022-09-04 21:32 | Emergency (ER) | payer MEDICARE, BC, SELFPAY ==
[2022-09-04 21:50] VITALS: BP 0/0; PULSE 0; RESP 0; TEMP -17.7; TEMP 0; O2SAT 0
== END 2022-09-04 21:51 | disposition left against medical advice (07) ==
LOC: ER 21:47
PROVIDERS: Emergency Provider Emergency Medicine; PCP Family Medicine
DX: Z53.21 Procedure and treatment not carried out due to patient leaving prior to being seen by health care provider (principal)
CPT/HCPCS: 99211

== ENCOUNTER → 2022-09-28 08:41 | Outpatient (CLI) | payer MEDICARE, BC, SELFPAY ==
--- NOTE | 2022-09-28 08:50 | XR_ITS ---
FINAL REPORT TECHNIQUE: Bone densitometry calculations of the lumbar spine, left forearm and right hip were obtained. CLINICAL HISTORY: . post menopausal COMPARISON: 09/12/2018 FINDINGS: DEXA BONE DENSITY AXIAL SKELETON Using L1-4, the bone mineral density of the spine is 1.399 g/cm2, corresponding to T-score of 3.2. Previously measured 1.708 g/cm2, corresponding to T-score of 4.4. Using the left forearm, the bone mineral density of the distal 1/3 is 0.726 g/cm2, corresponding to a T-score of 0.5. Previously measured 1.042 g/cm2, corresponding to T-score of 1.7. Using the right hip, the bone mineral density of the femoral neck is 1.016 g/cm2, corresponding to a T-score of 1.5. Previously measured 1.268 g/cm2, corresponding to T-score of 1.7. NOTE: T-score: Standard deviation compared with peak bone mass of young adult mean. *Following the recommendations of the International Society of Bone densitometry, classification of hip BMD is based on the lower of two T-scores; total hip or femoral neck. IMPRESSION: Normal bone mineral density of the lumbar spine, left forearm and right hip. Reviewed, Interpreted and Dictated by Suhail Patten III, MD Transcribed by Ya Pizarro Authenticated and [facility]
== END ==
PROVIDERS: PCP Family Medicine; Visit Provider Physician Assistant
DX: Z78.0 Asymptomatic menopausal state (principal)
CPT/HCPCS: 77080

== ENCOUNTER 2024-12-29 09:32 | Outpatient (CLI) | payer MEDICARE, BC, SELFPAY ==
--- OUTSIDE RECORDS SUMMARY | 2024-03-12 05:30 | XMS_ITS ---
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 Gr. 1.020 Ketone Neg Bili Neg Gluc Neg CBC Venipuncture (in house) Reviewed date:03/12/2024 12:36:38 PM Interpretation: Performing Lab: Notes/Report: wbc 4.8 3.5 - 10 lymph 30.7% 15 - 50 mid 6.9% 2 - 15 gran 62.4% 35 - 80 rbc 4.89 3.5 - 5.5 hgb 15.2 11.5 - 16.5 hct 45.0 35 - 55 mcv 92.0 75 - 100 mch 31.0 25 - 35 mchc 33.7 31 - 38 platlet 247 100 - 400 P-Vitamin B12 Reviewed date:03/13/2024 08:14:47 AM Interpretation: Performing Lab: Notes/Report: Test performed by [facility], [address] , [place] [address] Fahad Hess MD, Dosimetrist CLIA: [id number] Vitamin B12 >2000 232-1245 pg/mL P-Comprehensive Metabolic Pa bjorn (CMP) Reviewed date:03/13/2024 08:14:47 AM Interpretation: Performing Lab: Notes/Report: Test performed by [facility] [address] [place] [address] , [place] [address] Fahad Hess MD, Dosimetrist CLIA: [id number] Sodium 143 135-145 mmol/L Potassium 4.4 3.5-5.3 mmol/L Chloride 105 97-108 mmol/L CO2 28 22-32 mmol/L Glucose 92 65-99 mg/dL BUN 15 8-23 mg/dL Creatinine 0.74 0.50-1.00 mg/dL Calcium 9.1 8.6-10.4 mg/dL eGFR by Creatinine 87 >59 mL/min/1.73m2 Protein 6.4 6.0-8.3 g/dL Albumin 4.2 3.5-5.3 g/dL Alkaline Phosphatase 92 35-121 IU/L ALT (SGPT) 10 <5-47 IU/L AST (SGOT) 16 <5-40 IU/L Bilirubin, Total 0.9 <0.2-1.2 mg/dL A/G Ratio 1.9 1.1-2.5 P-Culture, Urine Reviewed date:03/17/2024 09:27:32 AM Interpretation: Performing Lab: Notes/Report: Test performed by [facility] [address] [place] [address] , [address], [place] [address] Fahad Hess MD, Dosimetrist CLIA: [id number] Specimen Source Urine - Void Culture, Urine See Below See Microbiol ogy Report Escherichia coli 10,000-15,000 CFU/ml Escherichia coli Sensitivity Panel See Below Organism E. coli Antibiotic INTERP Amikacin S Ampicillin R Aztreonam S Cefepime S Cefoxitin S Ceftazidime S Ceftriaxone S Cefuroxime S Ciprofloxacin R Ertapenem S Gentamicin S Imipenem S Levofloxacin R Meropenem S Nitrofurantoin S Piperacillin/Tazo S Tetracycline S Tobramycin S Trimeth/Sulfa S S=SUSCEPTIBLE I=INTERMEDIATE R=RESISTANT P-T4 Free (thyroxine) Reviewed date:03/13/2024 08:14:47 AM Interpretation: Performing Lab: Notes/Report: Test performed by [facility] [address] [place] [address] [place] [address] Fahad Hess MD, Dosimetrist CLIA: [id number] Thyroxine Free (free T4) 1.71 0.86-1.76 ng/dL P-Lipid Panel Reviewed date:03/13/2024 08:14:47 AM Interpretation: Performing Lab: Notes/Report: Test performed by [facility] [address] [place] [address] [place] [address] Fahad Hess MD, Dosimetrist CLIA: [id number] Cholesterol 214 <200 mg/dL Triglycerides 101 <150 mg/dL HDL Cholesterol 61 >39 mg/dL Cholesterol / HDL Ratio 3.51 0.00-4.44 Ratio Non-HDL Cholesterol 153 <130 mg/dL LDL Cholesterol (Calculation) 133 <130 mg/dL LDL Cholesterol Levels* Less than 100 mg/dL Optimal 100 to 129 mg/dL Near Optimal/ Above Optimal 130 to 159 mg/dL Borderline High 160 to 189 mg/dL High 190 mg/dL and above Very High * Categories as recommended by the 2004 ATPIII guidelines LDL/HDL Ratio 2.2 <3.3 Ratio LDL Cholesterol Patient History Test Date: 03/12/2024 LDL Results: 133 Units: mg/dL % Change: - P-TSH Reviewed date:03/13/2024 08:14:47 AM Interpretation: Performing Lab: Notes/Report: Test performed by [facility], [address] , [facility], [place] [address] Fahad Hess MD, Dosimetrist CLIA: [id number] TSH 1.06 0.43-5.25 mU/L REASON FOR VISIT refills on medication Medications Medication SIG (Take, Route, Frequency, Duration) Notes Start Date End Date Status B-12 1000 MCG 1 tab(s) orally once a day Active Levothyroxine Sodium 100 MCG 1 tab(s) or ally once a day; Duration: 90 days Active Immunizations Vaccine Route Administration Date Status Comme nts Fluzone High Dose (65yr and older) IM Intramuscular 03/12/2024 Administered Prevnar (PCV20) IM Intramuscular 03/12/2024 Administered Vital Signs Blood pressure systolic 112 mm Hg 03/12/20 24 Blood pressure diastolic 70 mm Hg 024 Heart Rate 59 /min 03/12/2024 Height 65.50 in 03/12/2024 Weight 231.0 lbs 03/12/2024 BMI 37.85 kg/m2 03/12/2024 Encounters Encounter Location Date Provider Diagnosis [facility] [address] [place] [id number] 03/12/2024 Debbie Perez Acquired hypothyroid ism E03.9 ; Vitamin B12 deficiency E53.8 ; Hyperlipidemia, unspecified E78.5 ; Dysuria R30.0 and Colon cancer screening Z12.11 Assessments Encounter Date Diagnosis (ICD Code) Assessment Notes Treatment Notes Treatment Clinical Notes Section Notes 03/12/2024 Acquired hypothyroidism (ICD-10 - E03.9) 03/12/2024 Vitamin B12 deficiency (ICD-10 - E53.8) 03/12/2024 Hyperlipidemia, unspecified (ICD-10 - E78.5) 03/12/2024 Dysuria (ICD-10 - R30.0) 03/12/2024 Colon cancer screening (ICD-10 - Z12.11) Plan Of Treatment Next Appt Details Follow Up: via phone to repo rt test results, Reason: Progress Notes * Trinity MAK KDOB:1955 (69 yo F)Acc No.[id number]:03/12/2024 Progress Notes Patient: Trinity ABDALLA Provider: VINAY Mary :1955 A ge:68 Y S ex:Female Date:03/12/2024 Address:[address] [place], [place] [id number] Pcp:Chiara Patrick Subjective: * Chief Complaints: * 1 . Refills on medication. * HPI: E ndocrinology: The patient is here today for a check up on Hypothyroidism and [facility] [place]. U rology: The pt states she has some odor to her urine and some burning with urination for about a week. Pt states she is having some nocturia as well. c/o frequent urination. c/o burning sensation. Denies : hematuria. D enies : fever. * ROS: D ERMATOLOGY: no R eliana. n o H fan. G ASTROENTEROLOGY: no N ausea. n o V omiting. n o D iarrhea.? U ROLOGY: no D ifficulty urinating. n o B lood in urine. * Medical History: H ypothyroidism, Cervical dysplasia, positive for HPV, LEEP 11/2007, Breast Cancer. * Surgical History: C -section X 2 , Cholecystectomy , Abdominal Hysterectomy , Total Hip Replacement 07/22/2014, LT Breast Lumpectomy 12/17/2020. * Hospitalization/Major Diagno stic Procedure: H ER 03/20/2021. * Family History: F ather: alive 81 yrs, diabetes. M other: 74 yrs, congestive heart failure. S iblings: brother and 2 sisters with thyroid disease. Sister with Lymphoma. C hilcarlos: son and daughter with Darier. 3 brother(s) , 1 sister(s) . 1 son(s) , 1 daughter(s) . . sister- of cancer. * Social History: C URRENT TOBACCO USE S moking Status: Patient does NOT smoke. C affeine: yes, frequency:pop occasionally. Home smoke detector use: yes. Marital Status: spouse is . Past smoking status: no, Smoking status: Does not smoke. Alcohol: No. Sexually active: yes. * Medications: T aking B-12 1000 MCG Tablet 1 tab(s) orally once a day , Taking Levothyroxine Sodium 100 MCG Tablet 1 tab(s) orally once a day , Medication List reviewed and reconciled with the patient * Allergies: C odeine: hallucinations, chest pain. Objective: * Vitals: W t:231.0, Temp:97.6, BP:112/70, HR:59, Nurse:CHALINO, Ht: 65.50, BMI:37.85. * Examination: G eneral Examination: General Appearance: N AD. H EENT: u nremarkable.?Oral cavity: n o lesions, mucosa moist and WNL, no erythema. N suzette: s upple, no lymphadenopathy. C hest: n ormal shape and expansion. H eart: R SR. L ungs: c lear to auscultation. A bdomen: bowel sounds present, soft and nontender, no organomegaly or masses, no guarding or rigidity. N eurologic Exam: I ntact, gait normal. S kin: n ormal, no rash. P eripheral pulses: n ormal (2+) bilaterally. E xtremities: n o leg edema. Assessment: * Assessment: 1. A cquired hypothyroidism - E03.9 (Primary) 2 . V itamin B12 deficiency - E53.8 3 . H yperlipidemia, unspecified - E78.5 4 . D ysuria - R30.0 5 . C olon cancer screening - Z12.11 Plan: * Treatment: Value Reference Range T hyroxine Free (free T4) 1.71 0.86-1.76 - ng/d L * AnaDebbie Narayanan 03/13/2024 8: 14:39 AM > see TE ?LAB: P-TSH (Collection Date & Time - 03/12/2024 09:10 AM)* Value Reference Range T SH 1.06 0.43-5.25 - mU/L * Debbie Perez 03/13/2024 8: 14:39 AM > see TE 2.?Vitamin B12 deficiency?LAB: P-Vitamin B12 (Collection Date & Time - 03/12/2024 09:10 AM)* Value Reference Range V itamin B12 >2000 H 232-1245 - pg/mL * Debbie Perez 03/13/2024 8: 14:39 AM > see TE 3.?Hyperlipidemia, unspecified?LAB: P-Comprehensive Metabolic Panel (CMP) (Collection Date & Time - 03/12/2024 09:10 AM)* Value Reference Range A /G Ratio 1.9 1.1-2.5 - * A lbumin 4.2 3.5-5.3 - g/dL * A lkaline Phosphatase 92 35-121 - IU/L * A LT (SGPT) 10 <5-47 - IU/L * A ST (SGOT) 16 <5-40 - IU/L * B ilirubin, Total 0.9 <0.2-1.2 - mg/dL * B UN 15 8-23 - mg/dL * C alcium 9.1 8.6-10.4 - mg/dL * C hloride 105 97-108 - mmol/L * C O2 28 22-32 - mmol/L * C reatinine 0.74 0.50-1.00 - mg/dL * G lucose 92 65-99 - mg/dL * P otassium 4.4 3.5-5.3 - mmol/L * S odium 143 135-145 - mmol/L * P rotein 6.4 6.0-8.3 - g/dL * e GFR by Creatinine 87 >59 - mL/min/1.73m2 * Debbie Perez Lady 03/13/2024 8: 14:39 AM > see TE ?LAB: P-Lipid Panel (Collection Date & Time - 03/12/2024 09:10 AM)* Value Reference Range C holesterol / HDL Ratio 3.51 0.00-4.44 - Ratio * C holesterol 214 H <200 - mg/dL * H DL Cholesterol 61 >39 - mg/dL * L DL Cholesterol (Calculation) 133 H <130 - mg/d L * L DL/HDL Ratio 2.2 <3.3 - Ratio * N on-HDL Cholesterol 153 H <130 - mg/dL * T riglycerides 101 <150 - mg/dL * Debbie Perez Lady 03/13/2024 8: 14:39 AM > see TE 4.?Dysuria?LAB: P-Culture, Urine (Collection Date & Time - 03/12/2024 09:10 AM)* Value Reference Range C ulture, Urine See Below - * S pecimen Source Urine - Void - * S ensitivity Panel See Below - * E scherichia coli 10,000-15,000 CFU/ml Escherichia coli - * Jackie Ye 03/17/2024 9:23: 32 AM >See phone encounter ?LAB: Urinalysis - Inhouse (Collection Date & Time - 03/12/2024)* Value Reference Range C olor/Clarity raysa/cloudy * L euk 1+ * N itrite Neg * U robili 16 * P rotein Neg * p H 7.0 * B lood trace-intact * S p. Gr. 1.020 * K etone Neg * B nasrin Neg * G meliza Neg * Zoe Sanchez 03/12/2024 9:5 6:27 AM > , Provider reviewed results while patient in office.AnaDebbie Narayanan 03/12/2024 12:36:25 PM > ?LAB: CBC Venipuncture (in house) (Collection Date & Time - 03/12/2024)* Value Reference Range w bc 4.8 3.5 - 10 * l ymph 30.7% 15 - 50 * m id 6.9% 2 - 15 * g ran 62.4% 35 - 80 * r bc 4.89 3.5 - 5.5 * h gb 15.2 11.5 - 16.5 * h ct 45.0 35 - 55 * m cv 92.0 75 - 100 * m ch 31.0 25 - 35 * m chc 33.7 31 - 38 * p latlet 247 100 - 400 * Zoe Sanchez 03/12/2024 11: 43:28 AM >AnaDebbie Narayanan 03/12/2024 12:36:35 PM > * Immunizations: Fluzone High Dose (65yr and older) : 0.7 mL (Route: Intramuscular) given by Zoe Sanchez on Right Deltoid Prevnar (PCV20) : 0.5 mL (Route: Intramuscular) given by Zoe Sanchez on Left Deltoid * Procedure Codes: 8 1002 Urinalysis, no micro, 00127 CBC WITH AUTO DIFF, 77688 VENIPUNCT, ROUTINE* * Follow Up: v ia phone to report test results * Images: Billing Information: * Visit Code: 60938 Office Visit, Est Pt., Level 4. * Procedure Codes: 17002 Urinalysis, no micro. 35740 CBC WITH AUTO DIFF. 66842 VENIPUNCT, ROUTINE*. * Electronic signature of VINAY Carranza on 12/29/2024 at 09:38 AM EDT Sign off status: Pending * Provider: VINAY Mary Date: 1 Generated for Keely talbert/Emelyn/Kadyitting on: 0 12/29/2024 09:38 AM EDT History and Physical Notes * HPI (History of Present Illness) Category Sub-Category Detail Notes Category Not es Urology frequent urination burning sensation hematuria fever Examination Category Sub-Category Detail Notes Category Not es General Examination HEENT: unremarkable Heart: RSR Lungs: clear to auscultatio n Abdomen: bowel sounds present , soft and nontender, no organomegaly or masses, no guarding or rigidity Extremities: no leg edema General Appearance: NAD Skin: normal, no rash Neurologic Exam: Intact, gait normal Neck: supple, no lymphaden opathy Oral cavity: no lesions, mucosa m oist and WNL, no erythema Peripheral pulses: normal (2+) bilatera lly Chest: normal shape and exp ansion
--- OUTSIDE RECORDS SUMMARY | 2024-03-19 04:00 | XMS_ITS ---
Author Organization [facility] Address [facility] [address] [place] [id number] Care Team Providers Care Inspector Balance Truing Name Role Phone Chiara Patrick Primary Care Provider [phone] Debbie Perez [phone] Results Component Value Reference Range Notes Colorectal cancer screening blood test, [facility] Reviewed date:04/24/2024 01:09:23 PM Interpretation:Negative Performing Lab: Notes/Report: Negative REASON FOR VISIT lab draw only- colon screen Medications Medication SIG (Take, Route, Frequency, Duration) Notes Start Date End Date Status Levothyroxine Sodium 100 MCG 1 tab(s) or ally once a day; Duration: 90 days Active B-12 1000 MCG 1 tab(s) orally once a day Active Macrobid 100 MG 1 capsule with food Orally every 12 hrs; Duration: 5 day(s) 03/17/2024 Active Encounters Encounter Location Date Provider Diagnosis [facility] [address] [place] [id number] 03/19/2024 Debbie Perez Colon cancer screeni ng Z12.11 Assessments Encounter Date Diagnosis (ICD Code) Assessment Notes Treatment Notes Treatment Clinical Notes Section Notes 03/19/2024 Colon cancer screening (ICD-10 - Z12.11) Plan Of Treatment No Information Progress Notes * Trinity MAK KDOB:1955 (69 yo F)Acc No.[id number]:03/19/2024 Patient: Trinity ABDALLA Provider: VINAY Mary :1955 A ge:68 Y S ex:Female Date:03/19/2024 Address:[place], [phone] Pcp:Chiara Patrick Subjective: * Chief Complaints: * 1 . Lab draw only- colon screen. * Medical History: * Medications: T aking B-12 1000 MCG Tablet 1 tab(s) orally once a day , Taking Levothyroxine Sodium 100 MCG Tablet 1 tab(s) orally once a day , Taking Macrobid 100 MG Capsule 1 capsule with food Orally every 12 hrs , Medication List reviewed and reconciled with the patient Objective: * Vitals: Assessment: * Assessment: 1. C olon cancer screening - Z12.11 (Primary) Plan: * Treatment: * Procedure Codes: 3 6415 VENIPUNCT, ROUTINE*, 59681 SPECIMEN HANDLING * Images: Billing Information: * Visit Code: * Procedure Codes: 84219 VENIPUNCT, ROUTINE*. 53181 SPECIMEN HANDLING. * Electronic signature of VINAY Carranza on 12/29/2024 at 09:38 AM EDT Sign off status: Pending * Provider: VINAY Mary Date: Generated for Keely talbert/Emelyn/Kadyitting on: 0 12/29/2024 09:38 AM EDT
--- OUTSIDE RECORDS SUMMARY | 2024-12-10 05:30 | XMS_ITS ---
Author Organization [facility] Address [address] [facility] [address] [place], [place] [id number] Care Team Providers Care Door Installer Name Role Phone Chiara Patrick Primary Care Provider Debbie Perez [phone] Allergies Allergen (clinical drug ingredient) Drug/Non Drug Allergy documented on EMR Reaction Allergy Type Onset Date Status codeine Codeine hallucinations, chest pain Drug Allergy Active Results Component Value Reference Range Notes CBC Venipuncture (in house) Reviewed date:12/18/2024 12:20:17 PM Interpretation: Normal Performing Lab: Notes/Report: Normal wbc 5.2 3.5 - 10 lymph 28.2 15 - 50 mid 7.1 2 - 15 gran 64.7 35 - 80 rbc 4.92 3.5 - 5.5 hgb 15.0 11.5 - 16.5 hct 45.1 35 - 55 mcv 91.7 75 - 100 mch 30.6 25 - 35 mchc 33.3 31 - 38 platlet 230 100 - 400 P-Vitamin B12 Reviewed date:12/18/2024 12:20:16 PM Interpretation:1941 Performing Lab: Notes/Report: Test performed by [facility], [facility] [address] [place] [address] , [address], [place] [address] Fahad Hess MD, Size Cutter CLIA: [id number] Vitamin B12 4435 068-0341 pg/mL P-Comprehensive Metabolic Pa bjorn (CMP) Reviewed date:12/18/2024 12:20:16 PM Interpretation: Normal Performing Lab: Notes/Report: Test performed by [facility] [address] [place] [address] [place] [address] Fahad Hess MD, Size Cutter CLIA: [id number] Sodium 142 135-145 mmol/L Potassium 4.3 3.5-5.3 mmol/L Chloride 106 97-108 mmol/L CO2 27 20-32 mmol/L Glucose 90 65-99 mg/dL BUN 14 8-23 mg/dL Creatinine 0.67 0.50-1.00 mg/dL Calcium 9.0 8.6-10.4 mg/dL eGFR by Creatinine 94 >59 mL/min/1.73m2 Protein 6.2 6.0-8.3 g/dL Albumin 3.9 3.5-5.3 g/dL Alkaline Phosphatase 95 35-121 IU/L ALT (SGPT) 10 <5-47 IU/L AST (SGOT) 18 <5-40 IU/L Bilirubin, Total 0.7 <0.2-1.2 mg/dL A/G Ratio 1.7 1.1-2.5 P-T4 Free (thyroxine) Reviewed date:12/18/2024 12:20:17 PM Interpretation: Normal Performing Lab: Notes/Report: Test performed by [facility] [address] [place] [address] , [place] [address] Fahad Hess MD, Size Cutter CLIA: [id number] Thyroxine Free (free T4) 1.71 0.86-1.76 ng/dL P-Lipid Panel Reviewed date:12/18/2024 12:20:17 PM Interpretation:non-HDL 137 Performing Lab: Notes/Report: Test performed by [facility] [address] [place] [address] [place] [address] Fahad Hess MD, Size Cutter CLIA: [id number] Cholesterol 193 <200 mg/dL Triglycerides 106 <150 mg/dL HDL Cholesterol 56 >39 mg/dL Cholesterol / HDL Ratio 3.45 0.00-4.44 Ratio Non-HDL Cholesterol 137 <130 mg/dL LDL Cholesterol (Calculation) 116 <130 mg/dL LDL Cholesterol Levels* Less than 100 mg/dL Optimal 100 to 129 mg/dL Near Optimal/ Above Optimal 130 to 159 mg/dL Borderline High 160 to 189 mg/dL High 190 mg/dL and above Very High * Categories as recommended by the 2004 ATPIII guidelines LDL/HDL Ratio 2.1 <3.3 Ratio LDL Cholesterol Patient History Test Date: 03/12/2024 LDL Results: 133 Units: mg/dL % Change: - Test Date: 12/10/2024 LDL Results: 116 Units: mg/dL % Change: -12% P-TSH Reviewed date:12/18/2024 12:20:17 PM Interpretation: Normal Performing Lab: Notes/Report: Test performed by [facility] [address] [facility] , [address], [place] [address] Fahad Hess MD, Size Cutter CLIA: [id number] TSH 0.77 0.43-5.25 mU/L P-Vitamin D 25-Hydroxy Reviewed date:12/18/2024 12:20:17 PM Interpretation:28.0 Performing Lab: Notes/Report: Test performed by [facility] , [address], [place] [address] Fahad Hess MD, Size Cutter CLIA: [id number] Vitamin D 25-Hydroxy 28.0 30.0-100.0 ng/mL Interpretation of Vitamin D 25 OH: < 20 ng/mL - Deficiency 20 - 29 ng/mL - Insufficiency 30 - 100 ng/mL - Sufficiency > 100 ng/mL - Super-therapeutic- toxicity may occur above this level. Clinical correlation required. REASON FOR VISIT check up w/ labs and Annual Wellness Visit, Needs labs & bone density screening Medications Medication SIG (Take, Route, Frequency, Duration) Notes Start Date End Date Status hydrOXYzine HCl 25 MG 1 tablet every nig ht as needed Orally Once a day; Duration: 30 days 12/10/2024 Active B-12 1000 MCG 1 tab(s) orally once a day Active Levothyroxine Sodium 100 MCG TAKE 1 TABL ET BY MOUTH DAILY; Duration: 90 Active Problems Problem Type SNOMED Code ICD Code Onset Dates Problem Status W/U Status Risk Notes Problem Insomnia (814808795) Other insomnia (G47.09) Active confirmed Problem Vitamin D deficiency (12448153) Vitamin D deficiency (E55.9) Active confirmed Problem Personal history of primary malignant neoplasm of breast (438026476) History of left breast cancer (Z85.3) Active confirmed Problem Morbid obesity (disorder) (356098822) Morbid (severe) obesity due to excess calories (E66.01) Active confirmed Vital Signs Blood pressure systolic 114 mm Hg 12/11/19 25 Blood pressure diastolic 74 mm Hg 025 Heart Rate 61 /min 12/10/2024 Height 65.50 in 12/10/2024 Weight 236.3 lbs 12/10/2024 BMI 38.72 kg/m2 12/10/2024 Encounters Encounter Location Date Provider Diagnosis [facility] [address] [place], [place] [id number] 12/10/2024 Debbie Perez Adult general medica l examination Z00.00 ; Other insomnia G47.09 ; Other fatigue R53.83 ; Vitamin B12 deficiency E53.8 ; Vitamin D deficiency E55.9 ; Acquired hypothyroidism E03.9 ; Hyperlipidemia, unspecified E78.5 ; Seborrheic keratoses L82.1 ; History of left breast cancer Z85.3 ; Osteoporosis screening Z13.820 and Morbid (severe) obesity due to excess calories E66.01 Assessments Encounter Date Diagnosis (ICD Code) Assessment Notes Treatment Notes Treatment Clinical Notes Section Notes 12/10/2024 Adult general medical examination (ICD-10 - Z00.00) Patient instructed to return to office Annually for Annual Wellness Visits to include annual screenings of Pain assessment, Functional Ability assessment, Cognitive Ability assessment, Fall Risk assessment, Depression screening and Bladder control screening. 12/10/2024 Other insomnia (ICD-10 - G47.09) 12/10/2024 Other fatigue (ICD-10 - R53.83) 12/10/2024 Vitamin B12 deficiency (ICD-10 - E53.8) 12/10/2024 Vitamin D deficiency (ICD-10 - E55.9) 12/10/2024 Acquired hypothyroidism (ICD-10 - E03.9) 12/10/2024 Hyperlipidemia, unspecified (ICD-10 - E78.5) 12/10/2024 Seborrheic keratoses (ICD-10 - L82.1) 12/10/2024 History of left breast cancer (ICD-10 - Z85.3) 12/10/2024 Osteoporosis screening (ICD-10 - Z13.820) 12/10/2024 Morbid (severe) obesity due to excess calories (ICD-10 - E66.01) Plan Of Treatment Medication Medication Name Sig Start Date Stop Date Notes hydrOXYzine HCl 25 MG 1 tablet every nig ht as needed Orally Once a day; Duration: 30 days 12/10/2024 Treatment Notes Assessment Notes Adult general medical examination Patien t instructed to return to office Annually for Annual Wellness Visits to include annual screenings of Pain assessment, Functional Ability assessment, Cognitive Ability assessment, Fall Risk assessment, Depression screening and Bladder control screening. Pending Test Test Name Order Date Bone density 12/10/2024 Next Appt Details Follow Up: As directed by , Reason: Progress Notes * Trinity MAK KDOB:1955 (69 yo F)Acc No.[id number]:12/10/2024 Annual Wellness Visit Patient: Trinity ABDALLA Provider: VINAY Mary:1955 A ge:69 Y S ex:Female Date:12/10/2024 Address:[phone] Pcp:Chiara Patrick Subjective: * Chief Complaints: * 1 . check up w/ labs and Annual Wellness Visit. 2. Needs labs & bone density screening. * HPI: H PI: Patient is here today for a check up with labs and a Medicare Annual Wellness Visit. Pt states that she is just not feeling good. Pt states not sleeping,always tried. Pt states she has an itchy place right side that she wants checked. * ROS: C ARDIOLOGY: no D izziness. n o C hest pain. G ASTROENTEROLOGY: no N ausea. n o V omiting. n o D iarrhea.? O PTHALMOLOGY: Negative for d enies vision issues. U ROLOGY: no D ifficulty urinating. n [...] other: 73 yrs, congestive heart failure. S ibana: brother and 2 sisters with thyroid disease. Sister with Lymphoma. C harmony: son and daughter with Darier. 3 brother(s) [...] , Taking Levothyroxine Sodium 100 MCG Tablet TAKE 1 TABLET BY MOUTH DAILY , Medication List reviewed and reconciled with the patient * Allergies: C odeine: hallucinations, chest pain. Objective: * Vitals: W t: 236.3, Temp: 97.5, BP: 114/74, HR: 61, Nurse: pe, Ht: 65.50, BMI:38.72. * Examination: G eneral Examination: General Appearance: N AD. H EENT: u nremarkable.?Oral cavity: n o lesions, mucosa moist and WNL, no erythema. N suzette: s upple, no lymphadenopathy. C hest: n ormal shape and expansion. H eart: R SR. L ungs: c lear to auscultation. A bdomen: b owel sounds present, soft and nontender. N eurologic Exam: I ntact, gait normal. S kin: n ormal, no rash, seborrheic keratosis under the right lower abdominal fold. P eripheral pulses: n ormal (2+) bilaterally. E xtremities: n o leg edema. * Physical Examination: G ENERAL: Pain Assessment: P ain level:0 , on a scale of 0-10 (with 10 being extreme pain). F unctional Status Assessment: P atient response to question of how often physical health interferes with daily activities: almost never . Able to perform ADLs-including meal preparation, grocery shopping, housework, laundry, taking medications or handling finances. Cognitive Status: alert and oriented. Ambulation Status: Fully ambulatory. F all Risk Assessment: I ndependant in ambulation, adequate lighting in home. Patient has NOT fallen or had trouble walking within the past 12 months. D epression Screening: D enies depressed mood or anxiety. Describes emotional health as: calm/peaceful. B ladder Control Screening: D enies problems. Assessment: * Assessment: 1. A dult general medical examination - Z00.00 (Primary) 2 . O ther insomnia - G47.09 3 . O ther fatigue - R53.83 4 . V itamin B12 deficiency - E53.8 5 . V itamin D deficiency - E55.9 6 . A cquired hypothyroidism - E03.9 7 . H yperlipidemia, unspecified - E78.5 ?8. S eborrheic keratoses - L82.1 9 . H istory of left breast cancer - Z85.3 1 0. O steoporosis screening - Z13.820 1 1. M orbid (severe) obesity due to excess calories - E66.01 Plan: * Treatment: 2. O ther insomnia Start hydrOXYzine HCl Tablet, 25 MG, 1 tablet every night as needed, Orally, Once a day, 30 days, 30 Tablet, Refills 0. 3. O ther fatigue L AB: P-Comprehensive Metabolic Panel (CMP) (Collection Date & Time - 12/10/2024 09:32 AM) N ormal Value Reference Range A /G Ratio 1.7 1.1-2.5 - * A lbumin 3.9 3.5-5.3 - g/dL * A lkaline Phosphatase 95 35-121 - IU/L * A LT (SGPT) 10 <5-47 - IU/L * A ST (SGOT) 18 <5-40 - IU/L * B ilirubin, Total 0.7 <0.2-1.2 - mg/dL * B UN 14 8-23 - mg/dL * C alcium 9.0 8.6-10.4 - mg/dL * C hloride 106 97-108 - mmol/L * C O2 27 20-32 - mmol/L * C reatinine 0.67 0.50-1.00 - mg/dL * G lucose 90 65-99 - mg/dL * P otassium 4.3 3.5-5.3 - mmol/L * S odium 142 135-145 - mmol/L * P rotein 6.2 6.0-8.3 - g/dL * e GFR by Creatinine 94 >59 - mL/min/1.73m2 * Debbie Perez 12/10/2024 10 :21:52 AM EDT >room 10, Janis Diaz 12/18/2024 12:20:09 PM EDT > See phone encounter ?LAB: CBC Venipuncture (in house) (Collection Date & Time - 12/10/2024)? Normal* Value Reference Range w bc 5.2 3.5 - 10 * l ymph 28.2 15 - 50 * m id 7.1 2 - 15 * g ran 64.7 35 - 80 * r bc 4.92 3.5 - 5.5 * h gb 15.0 11.5 - 16.5 * h ct 45.1 35 - 55 * m cv 91.7 75 - 100 * m ch 30.6 25 - 35 * m chc 33.3 31 - 38 * p latlet 230 100 - 400 * Zoe Sanchez 12/10/2024 12: 56:27 PM EDT > Janis Arevalo 12/18/2024 12:20:09 PM EDT > See phone encounter 4.?Vitamin B12 deficiency?LAB: P-Vitamin B12 (Collection Date & Time - 12/10/2024 09:32 AM)?1941* Value Reference Range V itamin B12 1941 H 232-1245 - pg/mL * Ana Debbie Narayanan 12/10/2024 10 :21:52 AM EDT >room 10, Janis Diaz 12/18/2024 12:20:09 PM EDT > See phone encounter 5.?Vitamin D deficiency?LAB: P-Vitamin D 25-Hydroxy (Collection Date & Time - 12/10/2024 09:32 AM)? 28.0* Value Reference Range V itamin D 25-Hydroxy 28.0 L 30.0-100.0 - ng/mL * Leoneric Debbie Narayanan 12/10/2024 10 :21:52 AM EDT >room 10, ben Janis Arevalo 12/18/2024 12:20:09 PM EDT > See phone encounter 6.?Acquired hypothyroidism?LAB: P-T4 Free (thyroxine) (Collection Date & Time - 12/10/2024 09:32 AM)? Normal* Value Reference Range T hyroxine Free (free T4) 1.71 0.86-1.76 - ng/d L * Ana Debbie Narayanan 12/10/2024 10 :21:52 AM EDT >room 10, ben Janis Arevalo 12/18/2024 12:20:09 PM EDT > See phone encounter ?LAB: P-TSH (Collection Date & Time - 12/10/2024 09:32 AM)?Normal* Value Reference Range T SH 0.77 0.43-5.25 - mU/L * Debbie Perez 12/10/2024 10 :21:52 AM EDT >room 10ben Whitney 12/18/2024 12:20:09 PM EDT > See phone encounter 7.?Hyperlipidemia, unspecified?LAB: P-Lipid Panel (Collection Date & Time - 12/10/2024 09:32 AM)?non-HDL 137* Value Reference Range C holesterol / HDL Ratio 3.45 0.00-4.44 - Ratio * C holesterol 193 <200 - mg/dL * H DL Cholesterol 56 >39 - mg/dL * L DL Cholesterol (Calculation) 116 <130 - mg/d L * L DL/HDL Ratio 2.1 <3.3 - Ratio * N on-HDL Cholesterol 137 H <130 - mg/dL * T riglycerides 106 <150 - mg/dL * Debbie Perez 12/10/2024 10 :21:52 AM EDT >room 10, Janis Diaz 12/18/2024 12:20:09 PM EDT > See phone encounter 8.?Osteoporosis screening?Imaging: Bone density* Tracy Franklin 12/15/2024 09:02 :02 AM EDT > faxed to [facility] Scheduling * Procedure Codes: G 0439 ANNUAL WELLNESS VST; PPS SUBSQT VST, G2211 Complex e/m visit add on, 1090F PRES/ABSN URINE INCON ASSESS, 3288F FALL RISK ASSESSMENT DOCD, 1170F FXNL STATUS ASSESSED, 1126F AMNT PAIN NOTED NONE PRSNT, 1159F MED LIST DOCD IN RCRD, 1003F LEVEL OF ACTIVITY ASSESS, 37804 CBC WITH AUTO DIFF, 1036F TOBACCO NON-USER, G8783 BP SCR PRFRM RCMDD DEFIND SCR INTVL, G8752 MOST RECENT SYSTOLIC BP < 140MM HG, G8754 MOST RECENT DIASTOLIC BP < 90MM HG * Preventive Medicine: Counseling: E motional health: P atient encouraged to try connecting with family or friends to boost mood. B ladder control: M ethods of controlling or managing leakage of urine discussed. E xercise: P atient advised to start, increase or maintain level of exercise/physical activity. I njury prevention: F all prevention discussed. Discussed need for cane/walker. Potential trip hazards discussed. Immunizations: T etanus u p to date. P neumococcal u p to date. I nfluenza u p to date, recommended seasonally. 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 C olonoscopy R ecent history: 03/19/2024 Shield test negative.?Bone mineral Density R ecent history: 09/28/2022, normal, recommended. * Follow Up: A s directed by * Images: Billing Information: * Visit Code: 02511 Office Visit, Est Pt., Level 3. Modifiers: 25 * Procedure Codes: G0439 ANNUAL WELLNESS VST; PPS SUBSQT VST. G2211 Complex e/m visit add on. 1090F PRES/ABSN URINE INCON ASSESS. 3288F FALL RISK ASSESSMENT DOCD. 1170F FXNL STATUS ASSESSED. 1126F AMNT PAIN NOTED NONE PRSNT. 1159F MED LIST DOCD IN RCRD. 1003F LEVEL OF ACTIVITY ASSESS. 35119 CBC WITH AUTO DIFF. 1036F TOBACCO NON-USER. G8783 BP SCR PRFRM RCMDD DEFIND SCR INTVL. G8752 MOST RECENT SYSTOLIC BP < 140MM HG. G8754 MOST RECENT DIASTOLIC BP < 90MM HG. * Electronic signature of VINAY Carranza on 12/29/2024 at 09:38 AM EDT Sign off status: Pending * Provider: VINAY Mary Date: 12/10/2024 Generated for Keely talbert/Emelyn/Chayosmitting on: 0 12/29/2024 09:38 AM EDT History and Physical Notes * HPI (History of Present Illness) Category Sub-Category Detail Notes Category Not es HPI Patient is here today for a [facility] k up with labs and a Medicare Annual Wellness Visit. Pt states that she is just not feeling good. Pt states not sleeping,always tried. Pt states she has an itchy place right side that she wants checked Physical Examination Category Sub-Category Detail Notes Section Note s GENERAL Pain Assessment: Pain level:0 , on a scale of 0-10 (with 10 being extreme pain) Functional Status Assessment: Patient re sponse to question of how often physical health interferes with daily activities: almost never . Able to perform ADLs-including meal preparation, grocery shopping, housework, laundry, taking medications or handling finances.Cognitive Status: alert and oriented.Ambulation Status: Fully ambulatory Fall Risk Assessment: Independant in amb ulation, adequate lighting in home. Patient has NOT fallen or had trouble walking within the past 12 months Depression Screening: Denies depressed m ood or anxiety. Describes emotional health as: calm/peaceful Bladder Control Screening: Denies proble ms Examination Category Sub-Category Detail Notes Category Not es General Examination HEENT: unremarkable Heart: RSR Lungs: clear to auscultatio n Abdomen: bowel sounds present , soft and nontender Extremities: no leg edema General Appearance: NAD Skin: normal, no rash, caitlin orrheic keratosis under the right lower abdominal fold Neurologic Exam: Intact, gait normal Neck: supple, no lymphaden opathy Oral cavity: no lesions, mucosa m oist and WNL, no erythema Peripheral pulses: normal (2+) bilatera lly Chest: normal shape and exp ansion
--- NOTE | 2024-12-29 09:35 | XR_ITS ---
FINAL REPORT CLINICAL HISTORY: SCREENING COMPARISON: 09/28/2022 FINDINGS: Using L1-4, the bone mineral density of the spine is 1.385 g/cm2, corresponding to T-score of 3.1. Using the left forearm, the bone mineral density of the mid is 0.582 g/cm2, corresponding to a T-score of -0.5. Using the right hip, the bone mineral density of the femoral neck is 1.061 g/cm2, corresponding to a T-score of 1.9. NOTE: T-score: Standard deviation compared with peak bone mass of young adult mean. *Following the recommendations of the International Society of Bone densitometry, classification of hip BMD is based on the lower of two T-scores; total hip or femoral neck. IMPRESSION: Normal bone mineral density of the lumbar spine, right hip, and left forearm. Reviewed, Interpreted and Dictated by Lyndon Omer MD Transcribed by Elma Townsend Authenticated and [facility]
--- OUTSIDE RECORDS SUMMARY | 2024-12-29 09:38 | XMS_ITS | Patient Health Record ---
Author Organization [facility] Address [address] [facility] [address] [place] [id number] Care Team Providers Care Radio Frequency Engineer Name Role Phone Chiara Patrick Primary Care Provider Jayleen Flood Unavailable [phone] Debbie Perez Unavailable [phone] Allergies Allergen (clinical drug ingredient) Drug/Non Drug Allergy documented on EMR Reaction Allergy Type Onset Date Status codeine Codeine hallucinations, chest pain Drug Allergy Active Results Component Value Reference Range Notes P-Vitamin D 25-Hydroxy Reviewed date:12/18/2024 12:20:17 PM Interpretation:28.0 Performing Lab: Notes/Report: Test performed by [facility] [address] [place], [place] [address] , [address], [place] [address] Fahad Hess MD, Paper Bag Inspector CLIA: [id number] Vitamin D 25-Hydroxy 28.0 30.0-100.0 ng/mL Interpretation of Vitamin D 25 OH: < 20 ng/mL - Deficiency 20 - 29 ng/mL - Insufficiency 30 - 100 ng/mL - Sufficiency > 100 ng/mL - Super-therapeutic- toxicity may occur above this level. Clinical correlation required. P-TSH Reviewed date:12/18/2024 12:20:17 PM Interpretation: Normal Performing Lab: Notes/Report: Test performed by [facility] [address] [place], [place] [address] , [address], [place] [address] Fahad Hess MD, Paper Bag Inspector CLIA: [id number] TSH 0.77 0.43-5.25 mU/L P-Lipid Panel Reviewed date:12/18/2024 12:20:17 PM Interpretation:non-HDL 137 Performing Lab: Notes/Report: Test performed by [facility] [address] [place] [address] , [address], [place] [address] Fahad Hess MD, Paper Bag Inspector CLIA: [id number] Cholesterol 193 <200 mg/dL Triglycerides 106 <150 [...] Results: 133 Units: mg/dL % Change: - ------- Test Date: 12/10/2024 LDL Results: 116 Units: mg/dL % Change: -12% P-T4 Free (thyroxine) Reviewed date:12/18/2024 12:20:17 PM Interpretation: Normal Performing Lab: Notes/Report: Test performed by [facility] [address] , [place] [address] Fahad Hess MD, Paper Bag Inspector CLIA: [id number] Thyroxine Free (free T4) 1.71 0.86-1.76 ng/dL P-Comprehensive Metabolic Pa bjorn (CMP) Reviewed date:12/18/2024 12:20:16 PM Interpretation: Normal Performing Lab: Notes/Report: Test performed by [facility] [address] , [address], [place] [address] Fahad Hess MD, Paper Bag Inspector CLIA: [id number] Sodium 142 135-145 mmol/L Potassium 4.3 3.5-5.3 [...] 0.7 <0.2-1.2 mg/dL A/G Ratio 1.7 1.1-2.5 P-Vitamin B12 Reviewed date:12/18/2024 12:20:16 PM Interpretation:1942 Performing Lab: Notes/Report: Test performed by [facility] [address] [place] [address] , [address], [place] [address] Fahad Hess MD, Paper Bag Inspector CLIA: [id number] Vitamin B12 4212 267-5601 pg/mL CBC Venipuncture (in house) Reviewed date:12/18/2024 12:20:17 [...] - 38 platlet 230 100 - 400 Colorectal cancer screening blood test, Steve Reviewed date:04/24/2024 01:09:23 PM Interpretation:Negative Performing Lab: Notes/Report: Negative P-TSH Reviewed date:03/13/2024 08:14:47 AM Interpretation: Performing Lab: Notes/Report: Test performed by [facility] [address] [place] [address] [place] [address] Fahad Hess MD, Paper Bag Inspector CLIA: [id number] TSH 1.06 0.43-5.25 mU/L P-Lipid Panel Reviewed date:03/13/2024 08:14:47 AM Interpretation: Performing Lab: Notes/Report: Test performed by [facility] [address] [place] [address] [facility], [place] [address] Fahad Hess MD, Paper Bag Inspector CLIA: [id number] Cholesterol 214 <200 mg/dL Triglycerides 101 <150 [...] Results: 133 Units: mg/dL % Change: - P-T4 Free (thyroxine) Reviewed date:03/13/2024 08:14:47 AM Interpretation: Performing Lab: Notes/Report: Test [address] [facility] [address] , [place] [address] Fahad Hess MD, Paper Bag Inspector CLIA: [id number] Thyroxine Free (free T4) 1.71 0.86-1.76 ng/dL P-Culture, Urine Reviewed date:03/17/2024 09:27:32 AM Interpretation: Performing Lab: Notes/Report: Test performed by [facility] [address] [place], [place] [address] , [place] [address] Fahad Hess MD, Paper Bag Inspector CLIA: [id number] Specimen Source Urine - Void Culture, Urine See Below See Microbiol ogy Report Escherichia coli 10,000-15,000 CFU/ml Escherichia coli Sensitivity Panel See Below Ciprofloxacin R Ertapenem S Gentamicin S Imipenem S Levofloxacin R Meropenem S Nitrofurantoin S Piperacillin/Tazo S Tetracycline S Tobramycin S Trimeth/Sulfa S S=SUSCEPTIBLE I=INTERMEDIATE R=RESISTANT Organism E. coli Antibiotic INTERP Amikacin S Ampicillin R Aztreonam S Cefepime S Cefoxitin S Ceftazidime S Ceftriaxone S Cefuroxime S P-Comprehensive Metabolic Pa bjorn (CMP) Reviewed date:03/13/2024 08:14:47 AM Interpretation: Performing Lab: Notes/Report: Test performed by [facility] [address] [place] [address] , [address], [place] [address] Fahad Hess MD, Paper Bag Inspector CLIA: [id number] Sodium 143 135-145 mmol/L Potassium 4.4 3.5-5.3 [...] 0.9 <0.2-1.2 mg/dL A/G Ratio 1.9 1.1-2.5 P-Vitamin B12 Reviewed date:03/13/2024 08:14:47 AM Interpretation: Performing Lab: Notes/Report: Test performed by [facility] [address] [facility] , [address], [place] [address] Fahad Hess MD, Paper Bag Inspector CLIA: [id number] Vitamin B12 >2000 232-1245 pg/mL CBC Venipuncture (in house) Reviewed date:03/12/2024 12:36:38 [...] - 38 platlet 247 100 - 400 Urinalysis - Inhouse Reviewed date:03/12/2024 12:36:28 PM Interpretation: Performing Lab: Notes/Report: Color/Clarity raysa/cloudy Leuk 1+ Nitrite Neg Urobili 16 Protein Neg pH 7.0 Blood trace-intact Sp. Gr. 1.020 Ketone Neg Bili Neg Gluc Neg Medications Medication SIG (Take, Route, Frequency, Duration) Notes Start Date End Date Status hydrOXYzine HCl 25 MG 1 tablet every nig ht as needed Orally Once a day; Duration: 30 days 12/10/2024 Active B-12 1000 MCG 1 tab(s) orally once a day Active Levothyroxine Sodium 100 MCG 1 tablet in the morning on an empty stomach Orally Once a day; Duration: 90 days Active Immunizations Vaccine Route Administration Date Status Comme nts xFluzone (6mos and older)-trivalent IM Intramuscular 02/28/2011 Administered Tetanus Tdap-Adacel (over 7yrs) IM Intramuscular 09/09/2018 Administered Tetanus Tdap-Adacel (over 7yrs) Unknown 11/19/2023 Administered Prevnar (PCV20) IM Intramuscular 03/12/2024 Administered Prevnar (PCV13) IM Intramuscular 03/15/2020 Administered PNEUMOVAX 23 VACCINE IM Intramuscular 09/20/2022 Administe red Hepatitis A (adult) Unknown 02/20/2018 Administered Hepatitis A (adult) Unknown 08/28/2018 Administered Fluzone High Dose (65yr and older) IM Intramuscular 03/15/2020 Administered Fluzone High Dose (65yr and older) IM Intramuscular 03/12/2024 Administered COVID 19 Moderna Unknown 08/17/2020 Administered COVID 19 Moderna Unknown 09/14/2020 Administered COVID 19 Moderna Unknown 04/29/2021 Administered Problems Problem Type SNOMED Code ICD Code Onset Dates Problem Status W/U Status Risk Notes Problem Malignant neoplasm of female breast (961733246) Malignant neoplasm of unspecified site of left female breast (C50.912) Active confirmed Problem Vitamin D deficiency (76869514) Vitamin D deficiency (E55.9) Active confirmed Problem Morbid obesity (disorder) (922476229) Morbid (severe) obesity due to excess calories (E66.01) Active confirmed Problem Insomnia (746819634) Other insomnia (G47.09) Active confirmed Problem Hyperlipidemia (54856604) Hyperlipidemia, unspecified (E78.5) Active confirmed Problem Acquired hypothyroidism (142027872) Acquired hypothyroidism (E03.9) Active confirmed Problem Postmenopausal state (finding) (24056629) Postmenopausal symptoms (N95.9) Active confirmed Problem Body mass index 40+ - severely obese (557416348) Adult BMI 40.0-44.9 kg/sq m (Z68.41) Active confirmed Problem Personal history of primary malignant neoplasm of breast (065084718) History of left breast cancer (Z85.3) Active confirmed Problem Seasonal allergic rhinitis (636564192) Seasonal allergic rhinitis, unspecified trigger (J30.2) Active confirmed Vital Signs Heart Rate 61 /min 12/10/2024 Blood pressure diastolic 74 mm Hg 12/10/2024 Height 65.50 in 12/10/2024 Blood pressure systolic 114 mm Hg 12/10/2024 Weight 236.3 lbs 12/10/2024 BMI 38.72 kg/m2 12/10/2024 Encounters Encounter Location Date Provider Diagnosis [facility] [address] [place] [id number] 03/12/2024 Debbie Perez Acquired hypothyroid ism E03.9 ; Vitamin B12 deficiency E53.8 ; Hyperlipidemia, unspecified E78.5 ; Dysuria R30.0 and Colon cancer screening Z12.[address] [facility] [address] [place] [id number] 03/19/2024 Debbie Perez Colon cancer screeni Z12.11 [facility] [address] [place], [place] [id number] 12/10/2024 Debbie Perez Adult general medica l examination Z00.00 ; Other insomnia G47.09 ; Other fatigue R53.83 ; Vitamin B12 deficiency E53.8 ; Vitamin D deficiency E55.9 ; Acquired hypothyroidism E03.9 ; Hyperlipidemia, unspecified E78.5 ; Seborrheic keratoses L82.1 ; History of left breast cancer Z85.3 ; Osteoporosis screening Z13.820 and Morbid (severe) obesity due to excess calories E66.01 [facility] [address] [place], [place] [id number] 03/13/2024 Debbie Croweric [facility] [address] [place], [place] [id number] 03/17/2024 Jayleen Flood [facility] [address] [place], [place] [id number] 12/04/2024 Chiara Kelton Patrick [facility] [address] [place], [place] [id number] 12/18/2024 Debbie Perez Assessments Encounter Date Diagnosis (ICD Code) Assessment Notes Treatment Notes Treatment Clinical Notes Section Notes 03/12/2024 Vitamin B12 deficiency (ICD-10 - E53.8) 03/12/2024 Acquired hypothyroidism (ICD-10 - E03.9) 12/10/2024 Other insomnia (ICD-10 - G47.09) 12/10/2024 Adult general medical examination (ICD-10 - Z00.00) Patient instructed to return to office Annually for Annual Wellness Visits to include annual screenings of Pain assessment, Functional Ability assessment, Cognitive Ability assessment, Fall Risk assessment, Depression screening and Bladder control screening. 03/19/2024 Colon cancer screening (ICD-10 - Z12.11) 03/12/2024 Hyperlipidemia, unspecified (ICD-10 - E78.5) 12/10/2024 Other fatigue (ICD-10 - R53.83) 03/12/2024 Dysuria (ICD-10 - R30.0) 12/10/2024 Vitamin B12 deficiency (ICD-10 - E53.8) 03/12/2024 Colon cancer screening (ICD-10 - Z12.11) 12/10/2024 Vitamin D deficiency (ICD-10 - E55.9) 12/10/2024 Acquired hypothyroidism (ICD-10 - E03.9) 12/10/2024 Hyperlipidemia, unspecified (ICD-10 - E78.5) 12/10/2024 Seborrheic keratoses (ICD-10 - L82.1) 12/10/2024 History of left breast cancer (ICD-10 - Z85.3) 12/10/2024 Osteoporosis screening (ICD-10 - Z13.820) 12/10/2024 Morbid (severe) obesity due to excess calories (ICD-10 - E66.01) Plan Of Treatment Pending Test Test Name Order Date Bone density 12/10/2024 Cologuard 03/30/2021 Insurance Providers Payer Name Payer Address Payer Phone Subscriber Number Group Number Insured Name Patient Relationship to Insured Coverage Start Date Coverage End Date MEDICARE PART B [address] [address] [place] [address] [phone] [id number] Trinity Mak Self - patient is the insured [facility] [employer] [facility] [address] [place] [address] [id number] Trinity Mak Self - patient is the insured Medical (General) History Medical History History ICD Code Hypothyroidism Cervical dysplasia, positive for HPV, 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
--- OUTSIDE RECORDS SUMMARY | 2024-12-29 09:38 | XMS_ITS | Clinical Summary ---
Author Organization [facility] Address [address] [place] [address] Care Team Providers Care German Teacher Name Role Phone Debbie Perez Primary Care Provider Graciela Watson MD Unavailable [phone] Allergies Active Allergy Reactions Criticality Noted Date Comments Codeine Nausea Low 11/02/2020 Docetaxel Rash High 04/18/2021 Medications glucosamine-ch ondroitin 500-400 MG tablet Take 1 tablet by mouth 3 (three) times a day. Active cyanocobalamin (Vitamin B-12) 1000 MCG tablet Take 1 tablet (1,000 mcg) by mouth daily. Active levothyroxine (Synthroid, Levoxyl) 100 MCG tablet Take 1 tablet (100 mcg) by mouth daily before breakfast. 12/12/19 24 Active dexamethasone (Decadron) 4 MG tabletIndicati ons:Malignant neoplasm of upper-outer quadrant of left breast in female, estrogen receptor negative Take 2 tablets (8 mg total) by mouth 2 (two) times a day. Start day prior to treatment and take for a total of 3 days. 36 tablet 03/07/20 21 021 Discontinued Active Problems Problem Noted Date Diagnosed Date Port-A-Cath in place 02/07/2022 Morbid obesity with body mass index (BMI) of 40. 0 or higher 02/07/2022 Encounter for antineoplastic chemotherapy 2021 Severe obesity (BMI 35.0-39.9) with comorbidity 06/27/2021 History of anesthesia complications 02/17/2021 Prolonged emergence from general anesthesia 02/2021 PONV (postoperative nausea and vomiting) 021 Hypothyroidism 02/17/2021 Good tolerance for activity 02/17/2021 Malignant neoplasm of upper- outer quadrant of left breast in female, estrogen receptor negative 11/30/2020 Cancer Staging:Clinical stage from 11/30/2020:Stage IA(cT1b, cN0, cM0, G2, ER-, NE-, HER2+) - Signed by Hansa Humphrey on 12/01/2020 Pathologic stage from 12/17/2020:Stage IA(pT1c, pN0, cM0, G2, ER-, NE-, HER2+) - Signed by Hansa Humphrey on 12/29/2020 Family History Medical History Relation Name Comments Lung cancer Brother Rectal cancer Brother Diabetes Father Heart disease Mother Lymphoma Sister Anesthesia problems Neg Hx Malig Hyperthermia Neg Hx Relation Name Status Comments Brother Father Mother Sister Social History Tobacco Use Types Packs/Day Years Used Date Smoking Tobacco: Never Passive Smoke Exposure: Never Smokeless Tobacco: Never Tobacco Cessation:Counseling Given: Not Answered Alcohol Use Standard Drinks/Week Comments Not Currently 0 (1 standard drink = 0.6 oz pur e alcohol) PHQ-2 Answer Date Recorded Patient Health Questionnaire-2 Score 0 08/05/2024 PHQ-9 Answer Date Recorded Patient Health Questionnaire-9 Score 0 08/05/2024 Education Answer Date Recorded What is the highest level of school you have completed or the highest degree you have received? High school graduate 11/30/2020 Comments No Sex and Gender Information Value Date Recorded Sex Assigned at Not on file Legal Sex Female 6:29 PM EDT Gender Identity Not on file Sexual Orientation Not on file Last Filed Vital Signs Vital Sign Reading Time Taken Comments Blood Pressure 121/75 08/05/2024 1:29 PM EST Pulse 61 08/05/2024 1:29 PM EST Temperature 36.5 C (97.7 F) 08/05/2024 1:29 PM EST Respiratory Rate 16 01/30/2023 12:58 PM EDT Oxygen Saturation 98% 08/05/2024 1:29 PM EST Inhaled Oxygen Concentration - - Weight 108 kg (237 lb 14 oz) 08/05/2024 1:29 PM EST Height 165.1 cm (5' 5 ) 02/06/2024 1:09 PM EDT Body Mass Index 39.58 02/06/2024 1:09 PM EDT Plan of Treatment Upcoming Encounters Date Type Department Care Team (Late st Contact Info) Description 02/10/2025 12:45 PM EDT Appointment [facility] [address] [place] [address] 02/10/2025 2:00 PM EDT Office Visit [facility] [address] [facility] [place] [address] Urszula Du, VINAY [address] [facility] [address] [place] [address] Health Maintenance Due Date Last Done Comments [facility]-Bone Density Scan 1954 [facility]-Hepatitis C Screening 1955 [facility]-Medicare Annual Wellness (AWV) 1955 [facility]-Infant/Child/Adol SDOH Screenings 1954 [facility]- SDOH Screenings 1972 [facility]-Adult SDOH Screenings 1972 [facility]-Zoster Vaccines (1 of 2) 1973 CT Colonography 11/15/1999 Colonoscopy 11/15/1999 FIT-DNA 11/15/1999 FIT 11/15/1999 FOBT 11/15/1999 Sigmoidoscopy 11/15/1999 [facility]-Colorectal Cancer Screening 11/15/1999 [facility]-RSV Vaccine: 60+ Years or (1 - Risk 60-74 years 1-dose series) 2014 NZN-JCHQC-32 Vaccine ( - season) 2024 03/15/2022, 04/29/2021, 09/14/2020, Additional history exists [facility]-Influenza Vaccine (#1) 2025 03/15/2020 [facility]-Depression Screening 08/05/2025 08/05/2024, 07/13 [facility]-DTaP,Tdap,and Td Vaccines (3 - Td or Tdap) 11/18/2033 11/19/2023, 09/09/2018 [facility]-Hepatitis A Vaccines Aged Out 08/28/2018, 02/09 No longer eligible based on patient's age to complete this topic [facility]-Pneumococcal Vaccine: 50+ Years Completed 09/20/2022, 03/15/2020 [facility]-Obesity Intervention Completed 01/30/2023 [facility]-Breast Cancer Screening Discontinued 01/10, 01/30/2023, 01/25/2022 HPV Vaccines Aged Out No longer eligi ble based on patient's age to complete this topic [facility]-HIB Vaccines Aged Out No longer e ligible based on patient's age to complete this topic [facility]-IPV Vaccines Aged Out No longer e ligible based on patient's age to complete this topic [facility]-Rotavirus Vaccines Aged Out No lo nger eligible based on patient's age to complete this topic Medical Devices Implanted Type Area Economics Professor Device Identifier Shelf Expiration Date Model / Serial / Lot Port Clearvue Power 8fr - [id number] - [id number] Implanted:Qty: 1 on 02/18/2021 by Hansa Humphrey MD at [facility] Catheter Right: Chest [id number] 05/10/2022 [id number] / [id number] / [id number] Hip Replacement Left: Hip Localizer 20 Applicator Set (7cm) - [id number] Implanted:Qty: 1 on 11/30/2020 at [facility] Left: Breast [id number] / [id number] / / Procedures Procedure Name Priority Date/Time Associated Diagnosis Comments MAMMOGRAPHY BREAST DIAGNOSTIC TOMOSYNTHESIS BILATERAL Routine 02/06/2024 1:17 PM EDT Malignant neoplasm of upper-outer quadrant of left breast in female, estrogen receptor negative (CMS/HCC) from Last 3 Months or Most Recently Relevant to Health Maintenance Results * Mammography Breast Diagnostic Tomosynthesis Bilateral (02/06/2024 1:17 PM EDT) Anatomical Region Laterality Modality Breast Bilateral Mammography Impressions 02/06/2024 2:12 PM EDT Right Breast BI-RADS Code: BI-RADS 1, Negative. Left Breast BI-RADS Code: BI-RADS 2, Benign finding. RECOMMENDATIONS: Right Breast Recommendations: Diagnostic Mammogram in 1 Year Left Breast Recommendations: Diagnostic Mammogram in 1 Year CRITICAL RESULT: No. COMMUNICATION: The results and recommendations were discussed with the patient and a printed lay language version of the imaging report was given to the patient at the time of the visit. The mammogram was read with the assistance of CAD and tomosynthesis. By electronically signing this report, I, the attending physician, attest that I have personally reviewed the images/data for the above examination(s) and agree with the final edited report. Drafted by Avlaro Flannery DO on 02/06/2024 1:59 PM Final report signed by Aliyah Wright MD on 02/06/2024 2:12 PM Narrative 02/06/2024 2:12 PM EDT CLINICAL INDICATION: Patient presents for annual bilateral mammogram. Status post left lumpectomy in 2020 for invasive ductal carcinoma. No new problems. TECHNIQUE: Bilateral diagnostic mammogram was performed. Computer assisted detection was used in the interpretation of this study. Tomosynthesis was used in the interpretation of this study. COMPARISON: Mammogram 01/30/2023, 11/07/2022, 01/25/2022, 11/18/2020, 10/26/2020, 10/24/2019, 10/09/2019. Bilateral Breast Density: Scattered fibroglandular density FINDINGS: Right Breast Findings: No suspicious masses, calcifications, or areas architectural distortion. Left Breast Findings: Finding 1: Stable post lumpectomy changes in the left breast. No suspicious masses, calcifications, or areas architectural distortion. Procedure Note Zulema Wright MD - 02/06/2024 CLINICAL INDICATION: Patient presents for annual bilateral mammogram. Status post leftlumpectomy in 2020 for invasive ductal carcinoma. No new problems. TECHNIQUE: Bilateral diagnostic mammogram was performed. Computer assisted detection was used in the interpretation of this study.Tomosynthesis was used in the interpretation of this study. COMPARISON: Mammogram 01/30/2023, 11/07/2022, 01/25/2022, 11/18/2020, 10/26/2020,10/24/2019, 10/09/2019. Bilateral Breast Density: Scattered fibroglandular density FINDINGS: Right Breast Findings: No suspicious masses, calcifications, or areas architectural distortion. Left Breast Findings: Finding 1: Stable post lumpectomy changes in the left breast. No suspicious masses, calcifications, or areas architectural distortion. IMPRESSION: Right Breast BI-RADS Code: BI-RADS 1, Negative. Left Breast BI-RADS Code: BI-RADS 2, Benign finding. RECOMMENDATIONS: Right Breast Recommendations: Diagnostic Mammogram in 1 Year Left Breast Recommendations: Diagnostic Mammogram in 1 Year CRITICAL RESULT: No. COMMUNICATION: The results and recommendations were discussed with the patient and aprinted lay language version of the imaging report was given to thepatient at the time of the visit. The mammogram was read with theassistance of CAD and tomosynthesis. By electronically signing this report, I, the attending physician, attestthat I have personally reviewed the images/data for the aboveexamination(s) and agree with the final edited report. Drafted by Alvaro Flannery DO on 02/06/2024 1:59 PM Final report signed by Aliyah Wright MD on 02/06/2024 2:12 PM Graciela Watson MD IMG BI PROCEDURES Final Resul t from Last 3 Months or Most Recently Relevant to Health Maintenance Insurance ON LICENSE OF [facility] Member Subscriber Plan / Payer (Ef fective 2015-Present) Name:Trinity Mak Relation to Subscriber:Self Name:Trinity Mak Payer ID:[id number] (NA) Group ID:[id number] Type:Not on file Address: [facility] [address] [place] [address] MEDICARE Care Teams German Teacher Relationship Specialty Start Date End Date Debbie Perez PA [address] [address] [place] [address] PCP - General 11/30/20 Graciela Watson MD [address] [place] [phone] Consulting Physician Hematology and Oncology 03/14/21
--- OUTSIDE RECORDS SUMMARY | 2024-12-29 09:38 | XMS_ITS | Encounter Summary ---
Author Organization Healthcare Address [address] [place] [address] Care Team Providers Care Foam Molder Name Role Phone Patricia Montaño APRN Primary Care Provider [phone] Debbie Perez Primary Care Provider [phone] Graciela Watson MD Unavailable [phone] Encounter Details Date Type Department Care Team (Late Contact Info) Description 11/23/2020 [facility] [address] [place] [address] Erica Plascencia MD [address] [place] [address] [place] [address] [place] [id number] Social History Tobacco Use Types Packs/Day Years Used Date Smoking Tobacco: Never Assessed Comments Unknown Sex and Gender Information Value Date Recorded Sex Assigned at Not on file Legal Sex Female 6:29 PM EDT Gender Identity Not on file Sexual Orientation Not on file documented as of this encounter Plan of Treatment Upcoming Encounters Date Type Department Care Team (Late Contact Info) Description 02/10/2025 12:45 PM EDT Appointment [facility] [address] [place] Building [address] [place] [address] 02/10/2025 2:00 PM EDT Office Visit [facility] [address] [facility], 2nd [place] [address] Urszula Du PA [address] [address] documented as of this encounter Visit Diagnoses Not on filedocumented in this encounter Care Teams Foam Molder Relationship Specialty Start Date End Date Patricia Montaño APRN [address] [place] [address] PCP - General 10/22/20 11/29/20 Debbie Perez PA 12[address] [facility] [address] [place] [address] PCP - General 11/30/20 Graciela Watson MD [address] [facility] [address] [place] [address] Consulting Physician Hematology and Oncology 03/14/21 documented as of this encounter
--- OUTSIDE RECORDS SUMMARY | 2024-12-29 09:38 | XMS_ITS | Encounter Summary ---
Author Organization Healthcare Address [address] [place] [address] Care Team Providers Care Rolled Gold Plater Name Role Phone Patricia Montaño APRN Primary Care Provider [phone] Debbie Perez Primary Care Provider [phone] Graciela Watson MD Unavailable [phone] Encounter Details Date Type Department Care Team (Late st Contact Info) Description 11/25/2020 Lab Requisition [facility] [address] [place] [address] Hansa Humphrey MD [address] [place] [address] Other abnormal and inconclusive findings on diagnostic imaging of breast Social History Tobacco Use Types Packs/Day Years [...] [facility] [address] [place] [address] 02/10/2025 2:00 PM EDT Office Visit [facility] [address] [facility], 2nd [place] [address] Urszula Du PA [address] [address] documented as of this encounter Procedures Procedure Name Priority Date/Time Associated Diagnosis Comments SURGICAL PATHOLOGY CONSULT Routine 11/25/2020 10:33 AM EDT Other abnormal and inconclusive findings on diagnostic imaging of breast documented in this encounter Results * Surgical Pathology Consult (11/25/2020 10:33 AM EDT) Case Report Sugical Pathology Consult Case: [id number] Authorizing Provider: Hansa Humphrey MD Collected: 11/25/2020 1033 Ordering Location: [facility] Lab Received: 11/25/2020 1033 Pathologist: Bakari Leon MD Specimen: Breast, Left, [id number] 12/02/2020 4:27 PM EDT [facility] Addendum This addendum is to document the provided clinical information: L breast abnormal mammogram 12/02/2020 4:27 PM EDT [facility] Addendum electronically signed by Bakari Leon MD on 12/02/2020 at 1626 EDT Comment:These results have b een appended to a previously final verified report. 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 BREAST, LEFT Received along with a corresponding pathology report from [facility] is 1 slide labeled outside case: [id number] collected on 11/18/2020. 12/02/2020 4:27 PM EDT [facility] Tissue Left breast structure / Unknown 11/25/2020 10:33 AM EDT 11/25/2020 10:33 AM EDT us Hansa Humphrey MD LAB PATHOLOGY ORDERABLES Edited Result - [facility] [address] [place] [address] documented in this encounter Visit Diagnoses Diagnosis Other abnormal and inconclusive findings on diagnostic imaging of breast documented in this encounter Care Teams Rolled Gold Plater Relationship Specialty Start Date End Date Patricia Montaño APRN [address] [place] [address] PCP - General 10/22/20 11/29/20 Debbie Perez PA 1210 [facility] [address] [place] [address] PCP - General 11/30/20 Graciela Watson MD 800 [facility] [address] [place] [address] Consulting Physician Hematology and Oncology 03/14/21 documented as of this encounter
--- OUTSIDE RECORDS SUMMARY | 2024-12-29 09:38 | XMS_ITS ---
Author Organization [facility] Address [address] [place] [address] Care Team Providers Care Rating Officer Name Role Phone Debbei Perez Primary Care Provider [phone] Graciela Watson MD Unavailable [phone] Active Problems Problem Noted Date Diagnosed Date [...] from 11/30/2020:Stage IA(cT1b, cN0, cM0, G2, ER-, AL-, HER2+) - Signed by Hansa Humphrey on 12/01/2020 Pathologic stage from 12/17/2020:Stage IA(pT1c, pN0, cM0, G2, ER-, AL-, HER2+) - Signed by Hansa Humphrey on 12/29/2020 Current Treatment and Therapy Plans No current plan information found. Past Treatment and Therapy Plans Oncology Treatment Plan Name Start Date Discontinue Date Treatment Medications Discontinue Reason Plan Provider Cycles Trastuzumab Every 21 Days 04/04/20 21 02/07/2022 trastuzumab-hy aluronidase-oy sk (Herceptin Hylecta) Therapy Complete Graciela Watson MD 14 of 14 cycles started DOCEtaxel / Trastuzumab Every 21 Days 1 04/03/2021 DOCEtaxel (Taxotere)DOCE taxel (Taxotere) chemo IVPB 250 mLtrastuzumab- hyaluronidase- oysk (Herceptin Hylecta) Toxicity/Compl ication Graciela Watson MD 1 of 2 cycles started Lifetime Dose Tracking * Chemical Lifetime Dose Automatic Entry Manual Entr y Fluoro Time 0.162 minutes 0.162 minutes 0 minutes Air Kerma 1.95 mGy 1.95 mGy 0 mGy
--- OUTSIDE RECORDS SUMMARY | 2024-12-29 09:38 | XMS_ITS ---
Author Organization Unknown TREATMENT PLAN Planned Care Start Date Provider Encounter for Check-up [id number] [facility]
--- OUTSIDE RECORDS SUMMARY | 2024-12-29 09:39 | XMS_ITS | Data Portability ---
Author Organization [facility] Address [address] [place] [address] Assessment No assessment recorded. Plan of Treatment Reminders Order Date Submit Date Provider Last Modified By Organization Details Last Modified Time Details Appointments None recorded. Lab None recorded. Referral None recorded. Procedures None recorded. Surgeries None recorded. Imaging None recorded. Medication Orders cephalexin 500 mg capsule 2023 024 [id number], [address] [place] [address] , [place], [address], 4 08:19:13 acyclovir 800 mg tablet 2022 023 [facility] [id number], [address] [place] [address] , [place], [address], 4 13:24:17 prednisone 20 mg tablet 2022 023 [facility] [id number], [address] [place] [address] , [place], [address], 4 13:24:23 Augmentin 500 mg-125 mg tablet 2022 023 renetta [facility] [id number], [address] [place] [address] [place], [address], 3 15:06:33 Patient TargetsNo targets recorded. Patient Instructions Encounter Date Encounter Id Patient Instructions Last Modified By Organization Details Last Modified Time 09/05/2022 [id number] animal bites: care instructions efryman Not available 09/05/2022 09:02:09 Reason for Referral None Reported. Problems Name Problem SNOMED Code Status Onset Date Resolution Date Notes Provider Name and Address Organization Details Recorded Time Hypothyroidis m 66691305 Active Supriya florence, STEPHANIE - [facility] 3 08:29:15 Malignant tumor of breast 878687598 Active STEPHANIE Fletcher - [facility] 3 08:29:32 Problem Notes None recorded. Procedures Surgical History Date Name Laterality Status Provider Name and Address Organization Details Recorded Time 11/19/19 24 Laceration Repair with Sutures/Claude completed Yasirshashi kerri, BUSINESS RELATIONSHIP MANAGER [address], [place], [address], [place] - [facility] 11/19/2023 14:27:48 09/06/19 23 Laceration Repair with Sutures/Claude completed Slim Jones, BUSINESS RELATIONSHIP MANAGER [address], [place], [address], [place] - [facility] 09/05/2022 09:57:43 cholecystectomy completed Supriyadhaval BROWN - [facility] 09/05/2022 08:31:27 lumpectomy of breast completed Supriyadhaval BROWN - [facility] 09/05/2022 08:31:39 Hip Replacement completed Supriya Alisson STEPHANIE - [facility] 09/05/2022 08:31:50 Hysterectomy completed Supriya BROWN - [facility] 09/05/2022 08:32:03 Imaging Results None recorded. Procedure Notes None recorded. Medical Equipment None Reported. Allergies No known drug allergies Medications Name Sig Start Date Stop Date Status Note LastModified by Organization Details LastModified Time prednisone 20 mg tablet Take 1 tablet twice a day by oral route for 5 days. 11/18 completed Not Available Not Available Not Available ciprofloxaci n 250 mg tablet TAKE ONE TABLET BY MOUTH EVERY TWELVE HOURS FOR 7 DAYS 09/05 completed Not Available Not Available Not Available acyclovir 800 mg tablet Take 1 tablet 5 times a day by oral route for 7 days. 11/18 completed Not Available Not Available Not Available levothyroxin e 100 mcg tablet 1 tablet qd active Not Available Not Available No t Available cephalexin 500 mg capsule Take 1 capsule twice a day by oral route for 10 days. active Not Available Not Available No t Available levothyroxin e 125 mcg tablet Take 1 tablet every day by oral route. 03/12 completed Not Available Not Available Not Available methylpredni solone 4 mg tablets in a dose pack 03/12 completed Not Available Not Available Not Available levothyroxin e 112 mcg tablet Take 1 tablet every day by oral route for 30 days. 11/18 completed Not Available Not Available Not Available amoxicillin 500 mg-potassium clavulanate 125 mg tablet Take 1 tablet every 12 hours by oral route for 7 days. 03/12 completed Not Available Not Available Not Available B12 1,000 mcg-methylte trahydrofola te 680 mcg DFE-B6 1.5 mg chew tablet Take by oral route. 03/12 completed Not Available Not Available Not Available Vitals Date Recorded Body weight Body temperature Heart rate Oxygen saturation Oxygen saturation in Arterial blood by Pulse oximetry Respiratory rate Systolic And Diastolic Provider Name and Address Organization Details Last Updated DateTime 3 507652. 05 g 97.68 [degF] 87 /min 98 % 98 % 18 /min 140/80 mm[Hg] Supriya Vinson [place] - [facility] 3 08:27:28 Date Recorded Body height Respiratory rate Body mass index (BMI) Body weight Heart rate Oxygen saturation Oxygen saturation in Arterial blood by Pulse oximetry Body temperature Systolic And Diastolic Provider Name and Address Organization Details Last Updated DateTime 4 165.1 cm 18 /min 38.4 kg/m2 182064. 84 g 68 /min 97 % 97 % 98 [degF] 146/72 mm[Hg] Sruthi Hardy [place] - [facility] 4 13:28:18 Date Recorded Body height Body mass index (BMI) Body weight Body temperature Heart rate Oxygen saturation Oxygen saturation in Arterial blood by Pulse oximetry Respiratory rate Systolic And Diastolic Provider Name and Address Organization Details Last Updated DateTime 3 165.1 cm 39.5 kg/m2 063091. 79 g 97.8 [degF] 78 /min 97 % 97 % 18 /min 124/78 mm[Hg] Supriya Vinson [place] - [facility] 3 15:05:48 Social History Question Answer Notes LastModified by Organizat ion Details LastModified Time Tobacco Smoking Status Never Smoker Supriya florence [place] - [facility] 09/05/2022 08:31:19 Do You Have An Advance Directive? No Information n ot available 03/12/2023 Are You Blind Or Do You Have Difficulty Seeing? No Information n ot available 03/12/2023 What Is Your Level Of Caffeine Consumption? Occasional Information not available 09/05/2022 In The 14 Days Before Symptom Onset, Have You Had Close Contact With A Laboratory-confirm ed COVID-19 While That Case Was Ill? No Information n ot available 03/12/2023 In The 14 Days Before Symptom Onset, Have You Had Close Contact With A Person Who Is Under Investigation For COVID-19 While That Person Was Ill? No Information not available 03/12/2023 Have You Been To An Area Known To Be High Risk For COVID-19? No Information not available 03/12/2023 Are You Deaf Or Do You Have Serious Difficulty Hearing? No Information not available 03/12/2023 What Type Of Diet Are You Following? REGULAR Information n ot available 11/19/2023 Have You Processed Blood Or Body Fluids From An Ebola Virus Disease Patient Without Appropriate PPE? No Information not available 03/12/2023 Do You Reside In Or Have You Traveled To An Area Where Ebola Virus Transmission Is Active? No Information not available 03/12/2023 What Is The Highest Grade Or Level Of School You Have Completed Or The Highest Degree You Have Received? [id number] Information not available 11/19/2023 Have There Been Any Changes To Your Family Or Social Situation? No Information no t available 03/12/2023 What Is The Fluoride Status Of Your Home? Fluoridated Information not available 03/12/2023 Have You Recently Or Are You Planning To Travel To An Area With Zika Virus? No Information not available 03/12/2023 Do You Have A Medical Power Of Hospital Medical Biller? No Information not available 03/12/2023 What Was The Date Of Your Most Recent Tobacco Screening? 11/19/2023 Information not available 11/19/2023 What Is Your Relationship Status? Information not available 11/19/2023 Do You Have Smoke And Carbon Monoxide Detectors In Your Home? No Information not available 03/12/2023 Are You Passively Exposed To Smoke? No Information no t available 03/12/2023 Has Tobacco Cessation Counseling Been Provided? No Information not available 09/05/2022 Do You Have Difficulty Walking Or Climbing Stairs? No Information not available 03/12/2023 Sex: Female Functional Status Question Answer Note LastModified by Organizat ion Details LastModified Time Do you use any illicit or recreational drugs? No Information not available 09/05/2022 Do you or have you ever used any other forms of tobacco or nicotine? No Information not available 11/19/2023 What is your level of alcohol consumption? None Information not available 09/05/2022 Are you currently employed? Yes Information not available 11/19/2023 Do you have transportation difficulties? No Information not available 03/12/2023 Are you able to walk? YESWOREST Information not available 03/12/2023 Do you have difficulty doing errands alone? No Information not available 03/12/2023 Are you able to care for yourself? 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 No Information not available 03/12/2023 What is your exercise level? None Information not available 11/19/2023 Mental Status Question Answer Note LastModified by Organizat ion Details LastModified Time Do you feel stressed (tense, restless, nervous, or anxious, or unable to sleep at night)? [id number] Information not available 11/19/2023 Do you have difficulty concentrating, remembering or making decisions? No Information no t available 03/12/2023 Family History Relationship Description Onset Age of this Age Resolved Age Notes LastModified by Organization Details LastModified Time Father No current problems or disability bstears Not available 11/18 13:24:48 Mother No current problems or disability bstears Not available 11/18 13:24:48 Medical History No medical history recorded. Gynecological History Statement/Question Response Menses Monthly N Date of Last Pap Smear Date of Last Colonoscopy Obstetrics History GPAL:G 2 P 2 0 0 2 Type Value Multiple Births 0 Full Term 2 Induced 0 Spontaneous 0 Premature 0 Living 2 Ectopics 0 Total 2 Immunizations Vaccine Type Date Status Note Provider Nam e and Address Organization Details Recorded Time Tdap 4 completed Slim Jones, BUSINESS RELATIONSHIP MANAGER [address], [place], [address], [facility] 11/20/2023 08:18:51 COVID-19, mRNA, LNP-S, PF, 100 mcg/0.5mL dose or 50 mcg/0.25mL dose 1 [facility] 09/05/2022 08:27:49 COVID-19, mRNA, LNP-S, PF, 100 mcg/0.5mL dose or 50 mcg/0.25mL dose 1 completed [facility] 09/05/2022 08:27:49 COVID-19, mRNA, LNP-S, PF, 100 mcg/0.5mL dose or 50 mcg/0.25mL dose 1 [facility] 09/05/2022 08:27:49 COVID-19, mRNA, LNP-S, bivalent, PF, 50 mcg/0.5 mL or 25mcg/0.25 mL dose 2 completed Supriya florence, [facility] 09/05/2022 08:27:49 Tdap 9 completed Supriya Vinson null, [facility] 09/05/2022 08:27:49 Pneumococcal conjugate PCV 13 0 [facility] 09/05/2022 08:27:49 Influenza, high-dose, trivalent, PF 0 completed [facility] 09/05/2022 08:27:49 Hep A, adult 9 [facility] 09/05/2022 08:27:49 Hep A, adult 8 completed Supriya florence, STEPHANIE - [facility] 09/05/2022 08:27:49 pneumococcal polysaccharide PPV23 3 completed Supriya florence, STEPHANIE - [facility] 03/12/2023 15:06:10 Past Encounters Encounter ID Performer Location Encounter Start Date Encounter Closed Date Diagnosis/Indication Diagnosis SNOMED-CT Code Diagnosis ICD10 Code Diagnosis Note [id number] Slim Jones [address] [address] 09/05/2022 08:13:58 09/05/2022 09:16:30 Cat bite - wound 824151623 T14.8XXA discussed the care of woundkeep area clean/drys marko strips will fall off on thier own do not pull them off [id number] Slim Jones [address] [address] 03/12/2023 14:53:44 03/12/2023 15:37:57 Herpes zoster 9810435 B02.9 discussed referral to pain management - pt declined for nowdiscuss ed shingles vaccine in 6 monthsdisc ussed meds in detail [id number] [facility] [address] 11/19/2023 13:17:33 11/19/2023 14:06:28 Laceration of right hand 8911590783 3370277 S61.411A steri strips applied to pull lac together left some opening, dressing applied Health Concerns Section Related Observation LastModified by Organization Detai ls LastModified Time None Recorded Concern Status LastModified by Organization Details LastModified Time None Recorded Advance Directives Directive N: Payers Insurance Date Sequence Insurance Name Policy Number Policy Matthews Covered Member ID Matthews Member ID Guarantor Name 11/30/2023 2 [place] [id number] Trinity Mak [id number] Trinity Mak 10/11/2022 1 [place] [address] Jin Obdulio [id number] Trinity Obdulio 11/19/2023 1 [place] Trinity Mak [id number] Trinity Mak 11/19/2023 [employer] [place] - [facility] (MEDICARE) Trinity Mak [id number] Trinity Mak Notes Date Note Type Note Provider Name and Address Organization Details Recorded Time 09/05/2022 text/html 66 yr old female that was bitten by a cat last night. Wound noted to right hand. The cat is a family pet that is up to date on immunizations.las t tetanus shot was 2019 Slim Jones APRN [address], [place], [address], [place] - [facility] 09/05/2022 09:58:55 03/12/2023 text/html 67 yr old female presents with red areas to the left side of the back that is painful. She thinks it may be shingles. pt states it started with shooting pain in her back on sunday and then the rash showed up sunday Slim Jones APRN [address], [place], [address], [place] - [facility] 03/12/2023 15:43:32 11/19/2023 text/html 68 year old female who presents to the office today with concerns ofcut on on right hand , caught on screen door handle on Sunday night- cleaned it with peroxide, used antibiotic cream and put skin flap back down Slim Jones APRN [address], [place], [address], [place] - [facility] 11/20/2023 08:19:17 OBGyn Episode No OBEpisode recorded.
== END 2024-12-29 23:59 | disposition home or self-care (01) ==
LOC: RAD 09:33
PROVIDERS: PCP Family Medicine; Visit Provider Physician Assistant
DX: Z13.820 Encounter for screening for osteoporosis (principal)
CPT/HCPCS: 77080